=== PATIENT | female | born 1990 | race Caucasian/White ===

== ENCOUNTER 2020-06-15 16:36 | Emergency (ER) | payer SELFPAY ==
[2020-06-15 16:42] VITALS: BP 130/81; PULSE 88; RESP 16; TEMP 36.6; O2SAT 100; BMI 27.4
--- NOTE | 2020-06-15 17:14 | ED_ITS ---
HPI - Abdominal Pain General: Chief Complaint: Abdominal Pain Stated Complaint: abdominal pain, back pain Time Seen by Provider: 06/15/20 17:02 Source: patient Mode of arrival: ambulatory Limitations: no limitations History of Present Illness: HPI narrative: Patient is a 29-year-old 3 para 2 patient and one blighted ovum who presents to the emergency department with left flank/left lower quadrant pain for the last 2 weeks. She states that she is 17 days late on her menstrual period. She has an implanted contraceptive. Pain in her left lower quadrant is getting worse and she says she also noticed some dark tarry vaginal discharge about 3 days ago. Her mother was concerned so asked her to come into the emergency department to be evaluated. MD elicited complaint: abdominal pain and flank pain Onset (ago): week(s) Pain Consistency: constant Location: LLQ Quality: cramping Radiation: LLQ Migration to: no migration Exacerbating factors: nothing Relieving factors: nothing Associated Symptoms: Reports GI cramping; Denies anorexia, belching, bloating, change in bowel habits, change in stool character, chills, coffee ground emesis, constipation, diarrhea, dyspepsia, dysuria, excessive flatus, fever(s), heartburn, hematochezia, hematuria, hematemesis, fecal incontinence, loose stools, melena, nausea, poor appetite, syncope and vomiting Related Data: Date of Last Menstrual Period: 04/22/20 Review of Systems General: Reports: 10 or more systems reviewed and unremarkable except in HPI and below Const: Denies: fever(s) or chills Eyes: Denies: change in vision or blurry vision ENMT: Denies: throat pain, enlarged tonsils, odynophagia, hoarseness, mouth pain or swelling of lips/tongue Card: Denies: syncope Resp: Denies: dyspnea, productive cough or non-productive cough GI: Reports: abdominal pain and GI cramping; Denies: nausea, vomiting, hematemesis, coffee ground emesis, heartburn, diarrhea, constipation, bloating, belching, excessive flatus, fecal incontinence, change in bowel habits, change in stool character, hematochezia or melena : Denies: dysuria or hematuria Musc: Denies: neck pain, back pain or extremity swelling Skin/Breast: Denies: rash, pruritus or erythema Neuro: Denies: headache(s), numbness in extremities or weakness in extremities Endo: Denies: polyuria, polydipsia or tired all the time PFSH ED PFSH: Social History (Reviewed 06/15/20 @ 17:19 by Lizette Mcclelland MD, [facility] [place] Smoking and tobacco status: former smoker Substance/Drug Use: never Female Reproductive History: Date of last menstrual period: 04/22/20 Physical Exam Const: COMMON NORMALS: no acute distress, average body habitus, patient oriented x3, no limitations, healthy appearing, alert and well nourished HENMT: COMMON NORMALS: normocephalic, atraumatic and moist oral mucous membranes HEAD & SCALP: normocephalic and atraumatic Neck/C-Spine: COMMON NORMALS: no meningeal signs and no JVD Resp: COMMON NORMALS: normal respiratory effort, No retractions, No use of accessory muscles, clear to auscultation bilaterally and percussion normal AUSCULTATION: clear to auscultation bilaterally PERCUSSION: percussion normal Cardio: COMMON NORMALS: no JVD, regular rate, regular rhythm, S1 normal heart sound present, S2 normal heart sound present, No gallops present (Cardio), No clicks present (Cardio), No murmurs present (Cardio), No rub (Cardio) and Peripheral pulses 2+ throughout RATE: regular rate RHYTHM: regular rhythm HEART SOUNDS: S1 normal heart sound present and S2 normal heart sound present PERIPHERAL PULSES: Peripheral pulses 2+ throughout GI: COMMON NORMALS: Normal to inspection, nondistended, normoactive bowel sounds present, Soft to palpation, non-tender, No hepatosplenomegaly present, no masses and no bruits PALPATION: Yes Soft to palpation and Yes No hepatosplenomegaly present : BLADDER/KIDNEY EXAM: Yes CVA tenderness SPECULUM EXAM - CERVIX: Yes Cervical os closed, Yes Abnormal cervical discharge present other (Dark brown, mucoid) and Yes Cervical tenderness present BIMANUAL EXAM - VAGINA & UTERUS: Yes Cervical tenderness present and Yes uterine size normal BIMANUAL EXAM - ADNEXA, OTHER: Yes tender on the left Back/Pelvis: GENERAL BACK: Yes CVA tenderness CVA tenderness: left Extremity: COMMON NORMALS: normal to inspection, full ROM, capillary refill normal, no calf tenderness and no pedal edema Neuro: COMMON NORMALS: patient oriented x3 SENSORIUM/ORIENTATION: Yes alert MENINGEAL SIGNS: Yes no meningeal signs Skin: COMMON NORMALS: no rashes or lesions noted, no wounds, turgor normal, no jaundice, no petechiae and no mottling GENERAL SKIN EXAM: no rashes or lesions noted and turgor normal Course Reevaluation(s): Reevaluation #1: Discussed her lab and imaging findings with her as well as my examination findings. Clinically her symptoms are consistent with PID. She also has clue cells on her wet prep so we will treat her for bacterial vaginosis. She be given a dose of intramuscular ceftriaxone 250 mg, and will be given a prescription for doxycycline and metronidazole. Sample sent for gonorrhea and chlamydia and those are pending. She is advised to follow-up with her primary care provider for further evaluation. She voiced understanding and is in agreement with the plan. Time: 20:06 Vital Signs: Vital signs: Vital Signs Temperature 97.9 F 06/15/20 16:42 Pulse Rate 77 06/15/20 20:21 Respiratory Rate 18 06/15/20 18:53 Blood Pressure 115/57 06/15/20 20:21 Pulse Oximetry 96 06/15/20 20:21 MDM - Abdominal Pain MDM Narrative: Medical decision making narrative: Patient with symptoms consistent with pelvic inflammatory disease. Wet prep also showed bacterial vaginosis. She is treated for PID with a single dose of intramuscular ceftriaxone, oral doxycycline 100 mg twice a day for 14 days and oral metronidazole 500 mg twice a day for 7 days. She is to follow-up with her primary care provider and to avoid intercourse until her treatment is complete and if her STD test is positive her partner needs to be treated also Medical Records: Attestation: I reviewed the patient's medical records. Lab Data: Attestation: I reviewed the patient's lab results. Labs: Lab Results 06/15/20 06/15/20 06/15/20 Range/Units 17:08 17:49 17:49 WBC 7.4 (4.0-10.0) 10^3/ uL RBC 4.37 (4.1-5.3) 10^6/u L Hgb 13.1 (11.5-15.3) g/dL Hct 39.6 (37.0-47.0) % MCV 90.6 (81-99) fL MCH 30.0 (28.0-34.0) pg MCHC 33.1 (30.0-36.0) g/dL RDW 11.7 L (12.1-15.1) % Plt Count 279 (130-400) 10^3/c mm MPV 10.4 (7.4-10.4) fL Neut % (Auto) 61.4 % Lymph % (Auto) 30.9 % Stevens % (Auto) 5.1 % Eos % (Auto) 1.6 % Baso % (Auto) 0.7 % Neut # (Auto) 4.56 (1.8-7.7) 10^3/u L Lymph # (Auto) 2.3 (0.8-4.8) 10^3/u L Stevens # (Auto) 0.4 (0.2-0.9) 10^3/u L Eos # (Auto) 0.1 (0.0-0.8) 10^3/u L Baso # (Auto) 0.1 (0.0-0.1) 10^3/u L Nucleated RBC % (a uto) 0 % Nucleated RBCs # 0.0 /100WBC Sodium 138 (136-145) mmol/L Potassium 4.0 (3.5-5.1) mmol/L Chloride 104 (98-107) mmol/L Carbon Dioxide 23 (22-29) mmol/L Anion Gap 15.0 (5-19) BUN 11 (6-20) mg/dL Creatinine 0.7 (0.5-0.9) mg/dL GFR Calculation 100.4 (90-130) mL/min Glucose 84 (65-115) mg/dL Calculated Osmolal ity 285 (285-295) mOsm/k g Calcium 9.3 (8.5-10.5) mg/dL Total Bilirubin 0.4 (0.15-1.2) mg/dL AST 64 H (0-32) U/L ALT 156 H (0-33) U/L Alkaline Phosphata se 57 (35-105) IU/L C-Reactive Protein 0.4 (0.0-4.9) mg/L Total Protein 7.2 (6.6-8.7) g/dL Albumin 4.8 (3.5-5.2) g/dL Globulin 2.4 (1.3-4.6) g/dL Lipase 28 (13-60) U/L Ser , Veronica i-Qnt 0.50 mIU/mL Urine Color Yellow (Yellow) Urine Appearance Clear (CLEAR) Urine pH 7 (5-7) Ur Specific Gravit y 1.010 (1.005-1.030) Urine Protein Neg (Negative) Urine Glucose (UA) Norm (Normal) Urine Ketones Negative (Negative) Urine Blood 2+ H (Negative) Urine Nitrate Negative (Negative) Urine Bilirubin Neg (Negative) Urine Urobilinogen 1 H (Negative) mg/dL Ur Leukocyte Nimisha ase Negative (Negative) Urine RBC 0-4 H (0-2) /hpf Urine WBC None (0-5) /hpf Ur Squamous Epith Cells 0-4 H (0-5) /hpf Amorphous Sediment Not Reportable Urine Bacteria Trace (NONE) /hpf Imaging Data ^: CT Abd/Pel: Attestation: I personally reviewed and interpreted this imaging study as follows: Radiologist's impression: [facility] [address] [address] Scan Report Signed Patient: Kory Meredith #: [id number] : 1990Acct#:[id number] Age/Sex: Date: [birth year] [facility] Attending Dr: Ordering Provider/Ordering MD: Lizette Mcclelland MD, [facility] [place] Date of Service: 06/15/20 Procedure(s): CT kidney stone 02183 Accession Number(s): [id number] Report Number: [id number] PROCEDURE INFORMATION: Exam: CT Abdomen And Pelvis Without Contrast Exam date and time: 06/15/2020 6:50 PM Age: 29 years old Clinical indication: Abdominal pain; Flank; Left; Additional info: Left flank pain TECHNIQUE: Imaging protocol: Computed tomography of the abdomen and pelvis without contrast. Radiation optimization: All CT scans at this facility use at least one of these dose optimization techniques: automated exposure control; mA and/or kV adjustment per patient size (includes targeted exams where dose is matched to clinical indication); or iterative reconstruction. COMPARISON: CT abdomen pelvis w con* [id number] 03/27/2014 3:11 AM RADIATION DOSE METRICS: Total DLP (mGy-cm): 879.48 FINDINGS: Liver: Normal. No mass. Gallbladder and bile ducts: Normal. No calcified stones. No ductal dilation. Pancreas: Normal. No ductal dilation. Spleen: Normal. No splenomegaly. Adrenal glands: Normal. No mass. Kidneys and ureters: Normal. No hydronephrosis. Stomach and bowel: Moderate stool in the proximal and sigmoid colon, as well as the rectum. The descending colon is decompressed with mild circumferential wall thickening. Fecalization of multiple loops of distal small bowel. No evidence for obstruction. The stomach is unremarkable. Appendix: The appendix is normal. Intraperitoneal space: Unremarkable. No free air. No significant fluid collection. Vasculature: Phlebolith in the right renal vein. Lymph nodes: Subcentimeter mesenteric and retroperitoneal lymph nodes are most likely reactive. Urinary bladder: Unremarkable as visualized. Reproductive: Unremarkable as visualized. Bones/joints: Unremarkable. No acute fracture. Soft tissues: Small fat containing umbilical hernia. CT/CT kidney stone [id number] IMPRESSION: 1. No ureteral calculus or obstructive uropathy. 2. Mild circumferential wall thickening of the descending colon may relate to under distension. Mild infectious or inflammatory colitis cannot be excluded however. 3. Stool burden in the proximal and distal colon could indicate constipation in the right clinical setting. 4. Fecalization within the loops of distal small bowel is consistent with chronic delayed transit. Radiation Dose CTDIVOL = (mGy): DLP = 879.48 (mGy-cm) Dictated By:Sal Torres Signed By:Sal TorresSignashleigh Date/Time:06/15/201956 DD/ 56 Discharge Plan Discharge Patient Disposition: Home Clinical Impression: Acute pelvic inflammatory disease (PID), Bacterial vaginosis Condition: Stable Prescriptions: New metronidazole 500 mg tablet 500 mg PO BID 7 Days Qty: 14 RF: 0 doxycycline hyclate 100 mg capsule 100 mg PO BID 14 Days Qty: 28 RF: 0 Discharge Orders: Discharge Order (Routine); Ordered 06/15/20 Ordered By: Lizette Mcclelland Discharge Diet: Usual diet Discharge Activity: Resume usual activity Patient Instructions: Pelvic Inflammatory Disease (ED), Bacterial Vaginosis (ED) Activity Restrictions/Additional Instructions: Return for any new or worsening symptoms. Follow-up with your primary care provider within 3 days. Take the medications as prescribed. You will be contacted with the remaining results from the test that we have sent out. Coding Level of Care Code ED Adjustment Supervisor for Eris Fwd Exam Comprehensive
[2020-06-15 18:12] LABS: Basophils # 0.1 10^3/uL (0.0-0.1); Basophils % 0.7 %; Eosinophils # 0.1 10^3/uL (0.0-0.8); Eosinophils % 1.6 %; Hematocrit 39.6 % (37.0-47.0); Hemoglobin 13.1 g/dL (11.5-15.3); Lymphocytes # 2.3 10^3/uL (0.8-4.8); Lymphocytes % 30.9 %; Mean Corpuscular HGB Conc 33.1 g/dL (30.0-36.0); Mean Corpuscular Volume 90.6 fL (81-99); Mean Platelet Volume 10.4 fL (7.4-10.4); Monocytes # 0.4 10^3/uL (0.2-0.9); Monocytes % 5.1 %; Neutrophils # 4.56 10^3/uL (1.8-7.7); Neutrophils % 61.4 %; Nucleated Red Blood Cells % 0 %; Platelet Count 279 10^3/cmm (130-400); Red Blood Count 4.37 10^6/uL (4.1-5.3); Red Cell Distribution Width 11.7 % (12.1-15.1); White Blood Count 7.4 10^3/uL (4.0-10.0)
[2020-06-15 18:27] LABS: Add Urine Microscopic? YES; Bilirubin Urine Neg (Negative); Blood Urine 2+ (Negative); Glucose Urine UA Norm (Normal); Ketones Urine Negative (Negative); Leukocyte Esterase Urine Negative (Negative); Nitrate Urine Negative (Negative); Protein Urine Neg (Negative); Urine Appearance Clear (CLEAR); Urine Color Yellow (Yellow); Urobilinogen Urine 1 mg/dL (Negative); pH Urine 7 (5-7)
[2020-06-15 18:40] LABS: Alanine Aminotransferase 156 U/L (0-33); Albumin Level 4.8 g/dL (3.5-5.2); Alkaline Phosphatase 57 IU/L (35-105); Blood Urea Nitrogen 11 mg/dL (6-20); C Reactive Protein 0.4 mg/L (0.0-4.9); Calcium 9.3 mg/dL (8.5-10.5); Carbon Dioxide 23 mmol/L (22-29); Chloride 104 mmol/L (98-107); Globulin 2.4 g/dL (1.3-4.6); Glomerular Filtration Rate 100.4 mL/min (90-130); Glucose 84 mg/dL (65-115); Lipase 28 U/L (13-60); Osmolality Calculated 285 mOsm/kg (285-295); Sodium 138 mmol/L (136-145); Total Bilirubin 0.4 mg/dL (0.15-1.2); Total Protein 7.2 g/dL (6.6-8.7)
[2020-06-15 18:41] LABS: RBC Urine 0-4 /hpf (0-2)
[2020-06-15 18:42] LABS: Add Urine Culture? No; Bacteria Urine TRACE /hpf; Squamous Epithelial Cell Urine 0-4 /hpf (0-5)
--- NOTE | 2020-06-15 18:44 | CTR_ITS ---
PROCEDURE INFORMATION: Exam: CT Abdomen And Pelvis Without Contrast Exam date and time: 06/15/2020 6:50 PM Age: 29 years old Clinical indication: Abdominal pain; Flank; Left; Additional info: Left flank pain TECHNIQUE: Imaging protocol: Computed tomography of the abdomen and pelvis without contrast. Radiation optimization: All CT scans at this facility use at least one of these dose optimization techniques: automated exposure control; mA and/or kV adjustment per patient size (includes targeted exams where dose is matched to clinical indication); or iterative reconstruction. COMPARISON: CT abdomen pelvis w con* [id number] 03/27/2014 3:11 AM RADIATION DOSE METRICS: Total DLP (mGy-cm): 879.48 FINDINGS: Liver: Normal. No mass. Gallbladder and bile ducts: Normal. No calcified stones. No ductal dilation. Pancreas: Normal. No ductal dilation. Spleen: Normal. No splenomegaly. Adrenal glands: Normal. No mass. Kidneys and ureters: Normal. No hydronephrosis. Stomach and bowel: Moderate stool in the proximal and sigmoid colon, as well as the rectum. The descending colon is decompressed with mild circumferential wall thickening. Fecalization of multiple loops of distal small bowel. No evidence for obstruction. The stomach is unremarkable. Appendix: The appendix is normal. Intraperitoneal space: Unremarkable. No free air. No significant fluid collection. Vasculature: Phlebolith in the right renal vein. Lymph nodes: Subcentimeter mesenteric and retroperitoneal lymph nodes are most likely reactive. Urinary bladder: Unremarkable as visualized. Reproductive: Unremarkable as visualized. Bones/joints: Unremarkable. No acute fracture. Soft tissues: Small fat containing umbilical hernia. CT/CT kidney stone [id number] IMPRESSION: 1. No ureteral calculus or obstructive uropathy. 2. Mild circumferential wall thickening of the descending colon may relate to under distension. Mild infectious or inflammatory colitis cannot be excluded however. 3. Stool burden in the proximal and distal colon could indicate constipation in the right clinical setting. 4. Fecalization within the loops of distal small bowel is consistent with chronic delayed transit. Radiation Dose CTDIVOL = (mGy): DLP = 879.48 (mGy-cm)
[2020-06-15 18:53] VITALS: BP 97/56; PULSE 57; RESP 18; O2SAT 96
[2020-06-15 18:59] LABS: Aspartate Amino Transferase 64 U/L (0-32)
[2020-06-15] MEDS: cefTRIAXone 1,000 mg SDV 250 MG IM (19:00)
[2020-06-15] MEDS: ketorolac 30 mg/mL INJ IVP (19:08)
[2020-06-15 19:38] VITALS: BP 115/57; PULSE 60; O2SAT 97
[2020-06-15 20:21] VITALS: BP 115/57; PULSE 77; O2SAT 96
== END 2020-06-15 20:23 | disposition home or self-care (01) ==
PROVIDERS: Emergency Provider Family Medicine
DX: N73.9 Female pelvic inflammatory disease, unspecified (principal); N76.0 Acute vaginitis; Z87.891 Personal history of nicotine dependence
CPT/HCPCS: 12345; 74176; 80053; 81001; 83690; 84702; 85025; 86140; 87210; 96372; 96374; 99283; E0352; J0696; J1885

== ENCOUNTER 2020-07-03 09:01 | Emergency (ER) | payer SELFPAY ==
[2020-07-03 09:21] VITALS: BP 114/82; PULSE 64; RESP 18; TEMP 36.5; O2SAT 99; BMI 27.4
[2020-07-03 09:28] VITALS: BP 127/75; PULSE 70; RESP 18; O2SAT 100
--- NOTE | 2020-07-03 09:44 | ED_ITS ---
HPI - Neck Pain/Injury General: Chief Complaint: Neck Pain/Injury Stated Complaint: neck pain Time Seen by Provider: 07/03/20 09:22 History of Present Illness: HPI Narrative: 29-year-old female comes in complaint of pain in her neck that began this morning. She is moving some things in her car, tossing them turned a few times suddenly began to develop some pain on the right side of her neck with quite comfortable that over time progressively worsened to the point now where she has slight flexion of the neck and is turned to her right she is unable to move from this position without significant discomfort. She is not had this previously. She has no history of cervical spine injury no recent trauma motor vehicle accident falls etc. She is not taking anything for this. 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 MD complaint: neck pain Onset (ago): minute(s) Place: home Radiation: right lateral Severity: severe Quality: burning Duration: constant Relieving factors: none Exacerbating factors: movement of neck Context: lifting and turning/bending Associated symptoms: Reports nausea; Denies dysphagia, difficulty walking, dizziness, fevers/chills, headache(s), swollen glands, tingling or weakness Treatments prior to arrival: none Review of Systems Const: Denies: fever(s), chills, body aches, change in appetite, fatigue or malaise ENMT: Denies: throat pain, ear or mastoid pain, nasal discharge or nasal congestion Card: Denies: chest pain, edema, dyspnea on exertion or orthopnea Resp: Denies: dyspnea, productive cough or non-productive cough GI: Reports: nausea; Denies: dysphagia : Denies: flank pain, difficulty voiding, dysuria, urinary frequency or urinary urgency Skin/Breast: Denies: rash or pruritus Neuro: Denies: headache(s), difficulty walking or dizziness PFSH ED PFSH: Family History Father Diabetes Clotting disorder Hypertension Grandmother Diabetes paternal Family/Other Thyroid condition maternal aunt Sister Thyroid condition Ovarian cancer diagnosis age unknown Denies family history of Colon cancer Heart disease Hyperlipidemia Breast cancer Anesthesia complication Bleeding disorder Uterine cancer Stroke Social History (Reviewed 07/03/20 @ 09:48 by KRISTIAN Finney Smoking and tobacco status: current every day smoker cigarettes [ Other cigarette details: 2 cigarettes/day ] Alcohol intake: former Year of sobriety/quit date alcohol: 2015 Other details last substance use: hitsory of methamphetamines and opiate abuse Female Reproductive History: Date of last menstrual period: 04/22/20 Physical Exam Const: COMMON NORMALS: no acute distress GENERAL APPEARANCE: cooperative and comfortable ORIENTATION/CONSCIOUSNESS: Yes awake, Yes oriented to person, Yes oriented to place and Yes oriented to time HENMT: COMMON NORMALS: normocephalic, atraumatic and hearing grossly normal bilaterally HEAD & SCALP: normocephalic and atraumatic Eye: COMMON NORMALS: Equal, round and reactive pupils present, EOMs intact bilaterally, conjunctivae normal and no scleral icterus CONJUNCTIVA: Yes conjunctivae normal PUPIL: Yes Equal, round and reactive pupils present Neck/C-Spine: COMMON NORMALS: no JVD GENERAL: Yes tender and Yes torticollis CERVICAL SPINE: Yes pain with cervical ROM and Yes loss of normal cervical lordosis OTHER: Patient holding head and neck turned to the right and slightly flexed consistent with a spasmodic torticollis patient has significant pain with attempts to move head to neutral position is unable to do so actively on her own. Resp: COMMON NORMALS: normal respiratory effort, No retractions, No use of accessory muscles and clear to auscultation bilaterally AUSCULTATION: clear to auscultation bilaterally Cardio: COMMON NORMALS: no JVD, regular rate, regular rhythm and No murmurs present (Cardio) RATE: regular rate RHYTHM: regular rhythm GI: COMMON NORMALS: Soft to palpation and No hepatosplenomegaly present AUSCULTATION: Yes normoactive bowel sounds PALPATION: Yes Soft to palpation, No Tenderness to palpation present (GI), No Guarding due to palpation present (GI) and Yes No hepatosplenomegaly present Extremity: COMMON NORMALS: normal to inspection, capillary refill normal, no clubbing, cyanosis or edema, no calf tenderness and no pedal edema Neuro: SENSORIUM/ORIENTATION: Yes oriented to person, Yes oriented to place and Yes oriented to time Skin: COMMON NORMALS: no rashes or lesions noted GENERAL SKIN EXAM: no rashes or lesions noted Course Vital Signs: Vital signs: Vital Signs Temperature 97.7 F 07/03/20 09:21 Pulse Rate 70 07/03/20 11:26 Respiratory Rate 18 07/03/20 11:26 Blood Pressure 127/75 07/03/20 11:26 Pulse Oximetry 100 07/03/20 11:26 MDM - Neck Pain/Injury MDM Narrative: Medical decision making narrative: Proved after medications will discharge home with diclofenac Medrol Dosepak Dosepak and Zanaflex. Offered narcotic pain medications patient is a recovering addict and she does not want any of those. Given note for work as well encouraged rest gentle stretching heat as needed follow-up with her primary care doctor if not improving the next 2 days for referral to physical therapy Discharge Plan Discharge Patient Disposition: Home Clinical Impression: Spasmodic torticollis Condition: Stable Prescriptions: New diclofenac sodium 75 mg tablet,delayed release (DR/EC) 75 mg PO Q12H PRN (Reason: pain) Qty: 20 RF: 0 Medrol (Deni) 4 mg tablets,dose pack See Rx Instructions .ROUTE .COMPLEX Qty: 21 RF: 0 Zanaflex 4 mg capsule 4 mg PO Q6H PRN (Reason: muscle spasticity) Qty: 20 RF: 0 No Action lidocaine-epinephrine (PF) 2 %-1:200,000 solution 3 ml SUBCUT ONCE Qty: 20 RF: 0 Nexplanon 68 mg implant subdermal RF: 0 Discharge Orders: Discharge ED (Routine); Ordered 07/03/20 Ordered By: Billy De Oliveira Stand Alone Forms: Work/School Release Coding Level of Care Code ED 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
[2020-07-03] MEDS: LORazepam 2 mg/mL INJ 1 mL IM (10:01)
[2020-07-03] MEDS: ketorolac 30 mg/mL INJ IM (10:01)
[2020-07-03] MEDS: orphenadrine 30 mg/mL Inj 2 mL 60 MG IM (10:02)
[2020-07-03 11:26] VITALS: BP 127/75; PULSE 70; RESP 18; O2SAT 100
--- NOTE | 2020-07-07 12:31 | DCPLANNER ---
auto repair shop manager had message to refer patient for physical therapy. auto repair shop manager called the Rehab center, spoke with Shaq, was told that an order had to placed, rehabilitation case coordinator will have it signed and fax it the rehab center.
--- NOTE | 2020-07-15 11:28 | DCPLANNER ---
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
== END 2020-07-03 11:26 | disposition home or self-care (01) ==
PROVIDERS: Emergency Provider Family Medicine
DX: G24.3 Spasmodic torticollis (principal); F17.210 Nicotine dependence, cigarettes, uncomplicated
CPT/HCPCS: 12345; 96372; 99281; 99283; J1885; J2060; J2360

== ENCOUNTER → 2020-09-21 17:59 | Outpatient (BNVA) | payer OTHER, SELFPAY | PROVIDERS: Visit Provider Nurse Practitioner Family | DX: J02.9 Acute pharyngitis, unspecified (principal) | CPT/HCPCS: 87071; 87880 ==

== ENCOUNTER → 2020-10-08 14:09 | Outpatient (BNVA) | payer OTHER, SELFPAY | PROVIDERS: Visit Provider Obstetrics & Gynecology | DX: N91.2 Amenorrhea, unspecified (principal) | CPT/HCPCS: 81025 ==

== ENCOUNTER → 2020-11-02 09:53 | Outpatient (BNVA) | payer OTHER, SELFPAY | PROVIDERS: Visit Provider Obstetrics & Gynecology | DX: O09.899 Supervision of other high risk pregnancies, unspecified trimester (principal); B18.2 Chronic viral hepatitis C | CPT/HCPCS: 80076; 80307; 84315; 85027; 86592; 86762; 86803; 86850; 86900; 87086; 87340; 87522; 87806 ==

== ENCOUNTER → 2020-12-03 08:23 | Outpatient (BNVA) | payer OTHER, SELFPAY | PROVIDERS: Visit Provider Obstetrics & Gynecology | DX: O09.899 Supervision of other high risk pregnancies, unspecified trimester (principal); N63.20 Unspecified lump in the left breast, unspecified quadrant; B18.2 Chronic viral hepatitis C; O21.9 Vomiting of pregnancy, unspecified; O98.419 Viral hepatitis complicating pregnancy, unspecified trimester; O99.331 Smoking (tobacco) complicating pregnancy, first trimester; Z12.4 Encounter for screening for malignant neoplasm of cervix | CPT/HCPCS: 84315; 87491; 87591; 88175 ==

== ENCOUNTER 2020-12-24 09:52 | Outpatient (CLI) | payer OTHER, SELFPAY ==
--- NOTE | 2020-12-24 10:00 | US_ITS ---
WS: [id number] ULTRASOUND BREAST LEFT TECHNIQUE: Ultrasound left breast focused area of concern. CLINICAL INFORMATION: N63.20 - Unspecified lump in the left breast, unspecified... COMPARISON: None. FINDINGS: Ultrasound left breast upper-outer quadrant in the area of concern. Incidental lymph node at the 2:00 position measuring 9 x 5 mm. Incidental ductal ectasia seen at the 4:00 position. No evidence of int raductal mass or lesion. Otherwise normal parenchymal tissue. No suspicious lesions. Findings are jose m ign. US/US breast LT limited* [id number] IMPRESSION: BI-RADS 2 benign Recommend annual screening mammography age 42
== END 2020-12-24 09:53 | disposition home or self-care (01) ==
LOC: RAD 09:53
PROVIDERS: Visit Provider Obstetrics & Gynecology
DX: N63.21 Unspecified lump in the left breast, upper outer quadrant (principal); N60.42 Mammary duct ectasia of left breast
CPT/HCPCS: 76642

== ENCOUNTER → 2021-01-07 15:02 | Outpatient (BNVA) | payer OTHER, SELFPAY | PROVIDERS: Visit Provider Obstetrics & Gynecology | DX: O32.1XX0 Maternal care for breech presentation, not applicable or unspecified (principal); Z3A.21 21 weeks gestation of pregnancy | CPT/HCPCS: 76805 ==

== ENCOUNTER → 2021-01-24 08:34 | Outpatient (BNVA) | payer OTHER, SELFPAY | PROVIDERS: Visit Provider Obstetrics & Gynecology | DX: B18.2 Chronic viral hepatitis C (principal); Z83.2 Family history of diseases of the blood and blood-forming organs and certain disorders involving the immune mechanism; O98.419 Viral hepatitis complicating pregnancy, unspecified trimester | CPT/HCPCS: 80053; 81241; 85210; 85300; 85303; 85306 ==

== ENCOUNTER → 2021-02-04 10:00 | Outpatient (BNVA) | payer OTHER, SELFPAY | PROVIDERS: Visit Provider Nurse Practitioner Women's Health | DX: O09.899 Supervision of other high risk pregnancies, unspecified trimester (principal); Z3A.00 Weeks of gestation of pregnancy not specified | CPT/HCPCS: 82950; 84315 ==

== ENCOUNTER 2021-02-24 11:10 | Outpatient (CLI) | payer OTHER, SELFPAY ==
[2021-02-24 11:20] VITALS: RESP 16
[2021-02-24 11:23] VITALS: BP 109/70; PULSE 97; TEMP 36.2
[2021-02-24 11:31] VITALS: BMI 28.8
[2021-02-24 11:40] VITALS: BP 107/67; PULSE 90
[2021-02-24 11:54] VITALS: BP 94/52; PULSE 90
[2021-02-24] MEDS: hyDROXYzine 25 mg Capsule 50 MG PO (11:59)
[2021-02-24 12:10] VITALS: BP 92/52; PULSE 81
[2021-02-24 12:14] LABS: Bilirubin Urine Neg (Negative); Blood Urine Neg (Negative); Glucose Urine UA Norm (Normal); Ketones Urine Negative (Negative); Leukocyte Esterase Urine Negative (Negative); Nitrate Urine Negative (Negative); Protein Urine Neg (Negative); Sulfosalicylic Acid Urine Negative (Negative); Urine Appearance Clear (CLEAR); Urine Color Yellow (Yellow); Urobilinogen Urine Norm (Negative); WBC Urine RARE /hpf (0-5); pH Urine 8 (5-7)
[2021-02-24 12:15] LABS: Bacteria Urine 1+ /hpf; Squamous Epithelial Cell Urine 0-4 /hpf (0-5)
[2021-02-24 12:24] VITALS: BP 85/54; PULSE 93
[2021-02-24] MEDS: nitrofurantoin SR (BID) 100 mg Capsule PO (12:42)
--- NOTE | 2021-02-24 12:47 | PC.NURSE ---
Macrobid 100mg PO BID x7 days called to [facility] pharmacy in [place] per patient's request.
== END 2021-02-24 12:35 | disposition home or self-care (01) ==
LOC: OPOB 11:12 → OBGYN 11:13
PROVIDERS: Visit Provider Obstetrics & Gynecology
DX: O26.899 Other specified pregnancy related conditions, unspecified trimester (principal); Z3A.00 Weeks of gestation of pregnancy not specified; R10.2 Pelvic and perineal pain
CPT/HCPCS: 81001; 87086; 99211

== ENCOUNTER → 2021-03-04 08:53 | Outpatient (BNVA) | payer OTHER, SELFPAY | PROVIDERS: Visit Provider Obstetrics & Gynecology | DX: O09.899 Supervision of other high risk pregnancies, unspecified trimester (principal) | CPT/HCPCS: 81000; 85025 ==

== ENCOUNTER → 2021-03-18 08:32 | Outpatient (BNVA) | payer OTHER, SELFPAY | PROVIDERS: Visit Provider Obstetrics & Gynecology | DX: O99.331 Smoking (tobacco) complicating pregnancy, first trimester (principal); B94.8 Sequelae of other specified infectious and parasitic diseases; B18.2 Chronic viral hepatitis C | CPT/HCPCS: 81000 ==

== ENCOUNTER → 2021-04-01 08:54 | Outpatient (BNVA) | payer OTHER, SELFPAY | PROVIDERS: Visit Provider Obstetrics & Gynecology | DX: O09.899 Supervision of other high risk pregnancies, unspecified trimester (principal); K59.00 Constipation, unspecified | CPT/HCPCS: 81000 ==

== ENCOUNTER → 2021-04-15 08:05 | Outpatient (BNVA) | payer OTHER, SELFPAY | PROVIDERS: Visit Provider Nurse Practitioner Women's Health | DX: G25.81 Restless legs syndrome; B18.2 Chronic viral hepatitis C; O98.419 Viral hepatitis complicating pregnancy, unspecified trimester; O99.331 Smoking (tobacco) complicating pregnancy, first trimester; B94.8 Sequelae of other specified infectious and parasitic diseases | CPT/HCPCS: 80076; 81000; 87522 ==

== ENCOUNTER 2021-04-20 10:50 | Outpatient (CLI) | payer OTHER, SELFPAY ==
[2021-04-20] VITALS (16 sets, daily range): BP systolic 104–108; BP diastolic 62–67; PULSE 93–131; RESP 16; TEMP 37–37.7; O2SAT 94–97; BMI 31.8
--- NOTE | 2021-04-20 11:28 | US_ITS ---
WS: [id number] ULTRASOUND OB LIMITED TECHNIQUE: Limited ultrasound examination of the fetus. CLINICAL INFORMATION: Fall and pain onto right side COMPARISON: January 07, 2021 FINDINGS: Cervix measures 3.1 cm Single interuterine gestation. presentation is cephalic Placental location is anterior. Placenta grade: 1 No evidence of placenta abruption. heart rate 133 BPM. OBI 10.1 cm EGA : 34 weeks 5 days US/US OB limited [id number] IMPRESSION: 1. Single live intrauterine with vertex presentation. 2. Cervix measures 3.1 cm. 3. Anterior placenta. No evidence of abruption 4. cardiac activity 133 bpm. 5. OBI 10.1 cm greater than the fifth and less than the median
[2021-04-20 12:07] LABS: Basophils % 0.4 %; Eosinophils # 0.1 10^3/uL (0.0-0.8); Eosinophils % 0.8 %; Hematocrit 32.1 % (37.0-47.0); Hemoglobin 10.7 g/dL (11.5-15.3); Lymphocytes # 1.8 10^3/uL (0.8-4.8); Lymphocytes % 15.9 %; Mean Corpuscular HGB Conc 33.3 g/dL (30.0-36.0); Mean Corpuscular Volume 89.9 fl (81-99); Mean Platelet Volume 10.3 fL (7.4-10.4); Monocytes # 0.6 10^3/uL (0.2-0.9); Monocytes % 5.8 %; Neutrophils # 8.38 10^3/uL (1.8-7.7); Neutrophils % 76.1 %; Nucleated Red Blood Cells % 0 %; Platelet Count 268 10^3/cmm (130-400); Red Blood Count 3.57 10^6/uL (4.1-5.3); Red Cell Distribution Width 12.1 % (12.1-15.1)
[2021-04-20 12:32] LABS: Alanine Aminotransferase 26 U/L (0-33); Albumin Level 3.2 g/dL (3.5-5.2); Alkaline Phosphatase 89 IU/L (35-105); Anion Gap 13.6 (5-19); Aspartate Amino Transferase 22 U/L (0-32); Blood Urea Nitrogen 8 mg/dL (6-20); Calcium 8.4 mg/dL (8.5-10.5); Carbon Dioxide 21 mmol/L (22-29); Chloride 104 mmol/L (98-107); Globulin 2.5 g/dL (1.3-4.6); Glomerular Filtration Rate 146.9 mL/min (90-130); Glucose 116 mg/dL (65-115); Osmolality Calculated 279 mOsm/kg (285-295); Potassium 3.6 mmol/L (3.5-5.1); Sodium 135 mmol/L (136-145); Total Bilirubin 0.2 mg/dL (0.15-1.2); Total Protein 5.7 g/dL (6.6-8.7)
== END 2021-04-20 14:17 | disposition home or self-care (01) ==
LOC: OPOB 10:59 → OBGYN 11:01
PROVIDERS: Visit Provider Obstetrics & Gynecology
DX: O26.899 Other specified pregnancy related conditions, unspecified trimester (principal); Z3A.00 Weeks of gestation of pregnancy not specified; Z91.81 History of falling
CPT/HCPCS: 36415; 59025; 76815; 80053; 85025; 99211

== ENCOUNTER → 2021-04-29 09:04 | Outpatient (BNVA) | payer OTHER, SELFPAY | PROVIDERS: PCP Obstetrics & Gynecology; Visit Provider Obstetrics & Gynecology | DX: O09.899 Supervision of other high risk pregnancies, unspecified trimester (principal); O99.331 Smoking (tobacco) complicating pregnancy, first trimester; B94.8 Sequelae of other specified infectious and parasitic diseases; O98.419 Viral hepatitis complicating pregnancy, unspecified trimester; B18.2 Chronic viral hepatitis C; G25.81 Restless legs syndrome | CPT/HCPCS: 81000; 87081 ==

== ENCOUNTER 2021-05-02 12:00 | Outpatient (CLI) | payer OTHER, SELFPAY ==
[2021-05-02] VITALS (7 sets, daily range): BP systolic 104–121; BP diastolic 61–78; PULSE 90–129; RESP 18; TEMP 35.9–36
[2021-05-02] MEDS: dextrose 5%-lactated ringers 1,000 ML 125 ML IV (13:15)
[2021-05-02] MEDS: sodium chloride 0.9% 500 ML 999 ML IV (13:15)
== END 2021-05-02 14:40 | disposition home or self-care (01) ==
LOC: OPOB 12:05 → OBGYN 12:11
PROVIDERS: PCP Obstetrics & Gynecology; Visit Provider Obstetrics & Gynecology
DX: O26.899 Other specified pregnancy related conditions, unspecified trimester (principal); Z3A.00 Weeks of gestation of pregnancy not specified; R10.9 Unspecified abdominal pain
CPT/HCPCS: 59025; 99211; J7040

== ENCOUNTER → 2021-05-06 13:00 | Outpatient (BNVA) | payer OTHER, SELFPAY | PROVIDERS: PCP Obstetrics & Gynecology; Visit Provider Obstetrics & Gynecology | DX: O09.899 Supervision of other high risk pregnancies, unspecified trimester (principal); Z3A.00 Weeks of gestation of pregnancy not specified | CPT/HCPCS: 81000 ==

== ENCOUNTER → 2021-05-13 10:11 | Outpatient (BNVA) | payer OTHER, SELFPAY | PROVIDERS: PCP Obstetrics & Gynecology; Visit Provider Obstetrics & Gynecology | DX: O99.331 Smoking (tobacco) complicating pregnancy, first trimester (principal); B94.8 Sequelae of other specified infectious and parasitic diseases; O98.419 Viral hepatitis complicating pregnancy, unspecified trimester; B18.2 Chronic viral hepatitis C; G25.81 Restless legs syndrome; Z20.822 Contact with and (suspected) exposure to COVID-19 | CPT/HCPCS: 84315; 87635 ==

== ENCOUNTER → 2021-05-20 10:36 | Outpatient (BNVA) | payer OTHER, SELFPAY | PROVIDERS: PCP Obstetrics & Gynecology; Visit Provider Obstetrics & Gynecology | DX: O98.419 Viral hepatitis complicating pregnancy, unspecified trimester (principal); B18.2 Chronic viral hepatitis C; O99.331 Smoking (tobacco) complicating pregnancy, first trimester; G25.81 Restless legs syndrome | CPT/HCPCS: 81000; 87635 ==

== ENCOUNTER 2021-05-22 17:00 | Inpatient (IN) | payer OTHER, SELFPAY ==
[2021-05-22] VITALS (26 sets, daily range): BP systolic 105–140; BP diastolic 55–88; PULSE 82–112; RESP 18; O2SAT 98–100; BMI 32.4
[2021-05-22] MEDS: dextrose 5%-lactated ringers 1,000 ML 125 ML IV (18:24)
[2021-05-22] MEDS: oxytocin 30 UNIT/500 ML BAG IV (18:24)
[2021-05-22 19:14] LABS: Basophils % 0.5 %; Eosinophils # 0.1 10^3/uL (0.0-0.8); Eosinophils % 0.9 %; Hematocrit 31.9 % (37.0-47.0); Hemoglobin 10.8 g/dL (11.5-15.3); Lymphocytes # 1.5 10^3/uL (0.8-4.8); Lymphocytes % 18.8 %; Mean Corpuscular HGB Conc 33.9 g/dL (30.0-36.0); Mean Corpuscular Hemoglobin 28.8 pg (28.0-34.0); Mean Corpuscular Volume 85.1 fl (81-99); Mean Platelet Volume 11.5 fL (7.4-10.4); Monocytes # 0.6 10^3/uL (0.2-0.9); Monocytes % 7.2 %; Neutrophils % 72.1 %; Nucleated Red Blood Cells % 0 %; Platelet Count 240 10^3/cmm (130-400); Red Blood Count 3.75 10^6/uL (4.1-5.3); Red Cell Distribution Width 12.2 % (12.1-15.1)
--- NOTE | 2021-05-22 21:58 | PM.OPHPUD ---
Labor & Delivery H&P Update Date of Procedure: May 23, 2021 Date H&P Performed: 05/20/21 H&P update information: I have reviewed H&P completed within last 30 days, I have examined patient prior to procedure and No changes to prior documentation Changes to previous documentation: The patient presents for induction at term. Admission Diagnosis: iup @ 39 10/03
[2021-05-23] VITALS (83 sets, daily range): BP systolic 90–137; BP diastolic 48–90; PULSE 66–102; RESP 16–18; TEMP 36.4–37; O2SAT 91–100
[2021-05-23] MEDS: lactated ringers 1,000 ML 999 ML IV (00:35)
--- NOTE | 2021-05-23 02:22 | P.ANES_ITS ---
Anesthesia Procedures Procedure/Date: 05/23/21 Epidural: Time Out Performed: Yes Consents Signed: Procedure Consent Consent: from patient, risks and benefits reviewed and patient agrees to proceed Lumbar Level: L3-L4 Epidural position: sitting Epidural procedure: sterile prep of area, 1% lidocaine to numb the area, 18 g needle, neg for parest hesia, test dose given, 1.5% xylocaine 1:200k epi (5cc), 0.2% Ropivacaine bolus ml (5cc and Fentanyl 100mcg), no systemic response, sterile dressing applied, L.U.D. no apparent complications and 0.2% Ropiavacaine @ mls/hr (13cc/hour)
[2021-05-23] MEDS: dextrose 5%-lactated ringers 1,000 ML 125 ML IV ×2 (03:07→10:52)
--- NOTE | 2021-05-23 13:41 | P.PCNOB_ITS ---
Delivery Note: Date of delivery: May 23, 2021 Pre-delivery diagnoses: Term Post-delivery diagnoses: Term delivered Procedure: A spontaneous vaginal delivery Op report anesthesia: Epidural Delivering Physician: Hoang Reyna MD Estimated blood loss (mL): 300 Delivery: The patient was noted to be complete and pushing, so was placed in the dorsal lithotomy position, prepped and draped in the usual sterile fashion for a vaginal delivery. Pt. Noted to have epidural anesthesia. At 1328 the patient delivered a viable 39 weeks female weighing 4240 g with scores of 8 and 9 at one and five minutes, respectively. The vertex was delivered spontaneously over an intact perineum. The patient was asked to push and the head delivered spontaneously in the OPAL position, over an intact perineum. A nuchal cord was checked and none noted. The anterior shoulder delivered easily and the posterior shoulder followed. The remainder of the was easily delivered and the oropharynx and nasopharynx was bulb suctioned. The was noted to have spontaneous cry and spontaneous movement of all four extremities. The cord was clamped x 2 and cut and noted to have 2 arteries and one vein. The was passed to the mother's abdomen where nursing personnel were in attendance. The placenta delivered intact spontaneously and the uterus was explored. 20 units of Pitocin was placed in the IV bag to firm the uterus. Examination of the cervix and vaginal vault did not reveal any lacerations. A vaginal pack was then placed. Examination of the perineum showed no laceration. The vaginal pack was then removed. The patient tolerated this procedure well, and recovered in L&D with her in their LDR room. All sponge and needle counts were correct. Post-Delivery Status: Good and stable. The patient requested to proceed with plan tubal ligation. OR was called and she has been scheduled for tubal ligation at 7 AM tomorrow morning. 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
--- NOTE | 2021-05-23 13:51 | P.PN_ITS ---
Subjective Subjective: Interval history: Mrs. Brown Status post spontaneous vaginal delivery, desires permanent sterilization. Vitals/I&O/Wt Last Vital Signs Temp 98.6 F 05/23/21 11:58 Pulse 101 H 05/23/21 13:00 Resp 17 05/23/21 11:58 BP 123/70 05/23/21 13:00 Pulse Ox 98 05/23/21 02:24 05/22/21 05/23/21 05/23/21 22:59 06:59 14:59 Intake Total 2.884 / 2.884 1772.917 / 0214.843 2741.75 / 1068.75 Output Total 100 / 100 Balance 2.884 / 2.884 1672.917 / 2193.777 5491.75 / 1068.75 Weight last 48 hrs Weight 83 kg Physical Exam Narrative: EXAM NARRATIVE: GA; alert and oriented x 3 HEENT: normal Breasts: engorged Nipples - skin intact Lungs; clear to auscultation Heart: regular rhythm, no murmurs. Abd: Appropriately tender. BS+. Uterine fundus below umbilicus. No Fundal Tenderness. Perineum: normal lochia. Extremities: no edema, no cyanosis, no tenderness. Urinary Catheter Management^: Pablo: Cath Placed During This Visit: yes Reason for Continuing Indwelling Catheter: Required Immobilization for Trauma or Surgery or Anesthesia Urinary Catheter Date of Insertion: 05/23/21 Urinary Catheter Time of Insertion: 03:00 Data : 05/22/21 18:40 A&P Assessment and plan (1) Request for sterilization: 30-year-old female status post spontaneous vaginal delivery desire permanent sterilization requesting tubal ligation. The patient was counseled regarding all methods of contraception, risk and complications. She elected to continue to proceed with the tubal ligation as planned. partial salpingectomy is associated with lower failure rates than interval tubal occlusions done via laparoscopy. She was counseled regarding the procedure, alternative, risks and complications. Complications of tubal sterilization include problems like but not limited to anesthesia, hemorrhage, organ damage, and mortality. Although pregnancies after a sterilization procedure are rare, there is substantial risk that any post- sterilization could be ectopic. The overall failure rate is on the order of 0.5% in the first year but a study showed that sterilization failures vary by both age at sterilization and the method used. The study also found that the risks of accumulate over time, and that for women aged 18 to 27 years, failure rates can be as high as 5% with bipolar coagulation and the spring clip. The patient was informed of the risks and benefits of the procedure. Risks included but were not limited to bleeding, infection, and injury to internal organs. The patient was counseled on the risk of sterilization failure. The patient was informed that in the event a occurs the risk of ectopic is increased. The patient was counseled that bilateral tubal ligation is intended to be permanent and nonreversible. She was also counseled that there are nonpermanent forms of control available to her. The patient expressed understanding of the risks involved, all questions were answered, and the patient consented to the procedure. 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
[2021-05-23] MEDS: lanolin oint 7 gm 1 APPLIC TOPICAL (15:40)
[2021-05-23] MEDS: ibuprofen 800 mg tablet PO ×2 (15:40→20:15)
[2021-05-23] MEDS: benzocaine-menthol 78 gm Canister 1 SPRAY TOPICAL (15:40)
--- NOTE | 2021-05-23 16:42 | PC.NURSE ---
pt up to bathroom with assistance. void 600mL. sheyla care performed. pad and gown changed. Pt back to bed.
[2021-05-23] MEDS: nicotine 14 mg Patch 1 PATCH TRANSDERMA (17:02)
--- NOTE | 2021-05-23 17:53 | PC.RESP ---
Smoking Cessation information sent to patient.
[2021-05-23] MEDS: docusate sodium 100 mg Capsule PO (18:07)
--- NOTE | 2021-05-23 18:29 | PC.NURSE ---
pt moved to OB9 via ambulation. tolerated well. oriented to room, call light, proud parent pack, and feeding log.
[2021-05-24] VITALS (18 sets, daily range): BP systolic 82–123; BP diastolic 50–82; PULSE 60–79; RESP 15–26; TEMP 36.1–36.9; O2SAT 93–100
[2021-05-24 02:32] LABS: Hematocrit 31.8 % (37.0-47.0); Hemoglobin 10.4 g/dL (11.5-15.3); Mean Corpuscular HGB Conc 32.7 g/dL (30.0-36.0); Mean Corpuscular Hemoglobin 28.7 pg (28.0-34.0); Mean Corpuscular Volume 87.6 fl (81-99); Mean Platelet Volume 11.5 fL (7.4-10.4); Platelet Count 206 10^3/cmm (130-400); Red Blood Count 3.63 10^6/uL (4.1-5.3); Red Cell Distribution Width 12.3 % (12.1-15.1); White Blood Count 8.8 10^3/uL (4.0-10.0)
--- NOTE | 2021-05-24 05:48 | ANE.PACU2 ---
Inpatient post-anesthesia follow up: Airway intact: Yes Vital signs: Temperature 98.2 F Pulse Rate 72 Respiratory Rate 16 Blood Pressure 108/70 Pulse Oximetry 97 Oxygen Delivery Me thod Room Air Oxygen Flow Rate Fraction of Inspir ed Oxygen Hydration adequate: Yes Nausea and vomiting: No Pain level: 2 Mental status: Baseline
--- NOTE | 2021-05-24 06:52 | ANES.PREANE2 ---
Pre-Anesthetic Assessment Pre-Anesthetic Assessment: Height/Weight: Height 1.6 m Weight 83 kg Temp Pulse Resp BP Pulse Ox 97 F L 70 18 123/68 98 05/24/21 06:45 05/24/21 06:45 05/24/21 06:45 05/24/21 06:45 05/24/21 06:45 Preop Diagnosis: Desire permanent sterilization Proposed Procedure: Operation Date: 05/24/21 07:00 Proposed Procedures p Bilateral Tubal Ligation(Not Applicable) - Hoang Reyna MD Was Beta [place] taken within 24 hours: N/A Was Clonidine taken within 24 hours: N/A Social: Social History: Tobacco Exam: Pre-Anes Outpt Exam: alert, oriented x 3, clear to auscultation bilaterally and regular rate & rhythm Airway: Submandibular: WNL Cervical ROM: WNL MP: 2 Pulmonary: Pulmonary: COPD Hepatic: Hepatic: Hepatitis (Chronic Hep C) Anesthetic Plan: ASA status: 2 Anesthesia: Anesthesia Evaluation and General Risk of > 500 ml blood loss (7ml/kg in children): No Meds/Allergies Current Medications: Current Medications Generic Name Dose Route Start Last Admin Trade Name Freq PRN Reason Stop Dose Admin Benzocaine 1 spray 05/23/21 15:07 05/23/21 15:40 Benzocaine-Menth ol 78 Gm Canister TOPICAL 1 can PRN PRN Administration PAIN Docusate Sodium 100 mg 05/23/21 18:00 05/23/21 18:07 Docusate Sodium 100 Mg Capsule PO 100 mg BID RYAN Administration Ibuprofen 800 mg 05/23/21 15:07 05/23/21 20:15 Ibuprofen 800 Mg Tablet PO 800 mg TID RYAN Administration Lanolin 1 applic 05/23/21 15:07 05/23/21 15:40 Lanolin Oint 7 G m TOPICAL 1 tube PRN PRN Administration DRYNESS Nicotine 1 patch 05/23/21 16:05 05/23/21 17:02 Nicotine 14 Mg P atch TRANSDERMA 1 patch DAILY RYAN Administration PFSH Anesthesia PFSH: Medical History Hepatitis C History of illicit drug use Sober date 2015 No pertinent past medical history neghx: htn,dm,thyroid,dvt/pe PCP: None TMJ pain dysfunction syndrome Surgical History Hx of dilation and curettage (~2014) Family History Father Diabetes Clotting disorder Hypertension Grandmother Diabetes paternal Family/Other Thyroid condition maternal aunt Sister Thyroid condition Ovarian cancer diagnosis age unknown Denies family history of Colon cancer Heart disease Hyperlipidemia Breast cancer Uterine cancer Stroke Social History Smoking and tobacco status: current every day smoker cigarettes Packs smoked per day: 0.25 Alcohol intake: former Year of sobriety/quit date alcohol: 2015 Other details last substance use: hitsory of methamphetamines, marijuana and opiate abuse Female Reproductive History: Date of last menstrual period: 04/22/20 : 4 Data Anesthesia CBC & Chem 7: 05/24/21 01:50 Other Labs: Laboratory Results - last 48 hr 05/22/21 05/22/21 05/24/21 17:30 18:40 01:50 WBC Cancelled 8.0 8.8 Corrected WBC Cancelled RBC Cancelled 3.75 L 3.63 L Hgb Cancelled 10.8 L 10.4 L Hct Cancelled 31.9 L 31.8 L MCV Cancelled 85.1 87.6 MCH Cancelled 28.8 28.7 MCHC Cancelled 33.9 32.7 RDW Cancelled 12.2 12.3 Plt Count Cancelled 240 206 MPV Cancelled 11.5 H 11.5 H Gran % Cancelled Neut % (Auto) Cancelled 72.1 Lymph % (Auto) Cancelled 18.8 [place] % (Auto) Cancelled 7.2 Eos % (Auto) Cancelled 0.9 Baso % (Auto) Cancelled 0.5 Neut # (Auto) Cancelled 5.80 Lymph # (Auto) Cancelled 1.5 [place] # (Auto) Cancelled 0.6 Eos # (Auto) Cancelled 0.1 Baso # (Auto) Cancelled 0.0 Absolute Gran (auto) Cancelled Nucleated RBC % (auto) Cancelled 0 Nucleated RBCs # Cancelled 0.0 Cardiac Studies: No Data to Display
[2021-05-24] MEDS: sodium chloride 0.9% 1,000 ML 30 ML IV (07:06)
--- NOTE | 2021-05-24 07:46 | PM.OP ---
Operative Report Date of procedure: May 24, 2021 Pre-op Diagnosis: Status post spontaneous vaginal delivery, Desire permanent sterilization Post-op diagnosis: same Procedure Done: bilateral tubal ligation Specimens removed/disposition: Left and right fallopian tube segments Pathology: Left and right fallopian tubes segments Surgeon: Hoang Reyna MD Anesthesia: General Estimated blood loss (mL): 5 IV fluids (mL): 500 Complications: None Condition: stable Disposition: PACU Procedure: After assuring informed consent. The patient was informed of the risks and benefits of the procedure. Risks included but were not limited to bleeding, infection, and injury to internal organs. The patient was counseled on the risk of sterilization failure. The patient was informed that in the event a occurs the risk of ectopic is increased. The patient was counseled that bilateral tubal ligation is intended to be permanent and nonreversible. She was also counseled that there are nonpermanent forms of control available to her. The patient expressed understanding of the risks involved, all questions were answered, and the patient consented to the procedure. The patient was taken to the operating room and general anesthesia administered. Time-out procedure was performed. A small, transverse, infraumbilical skin incision was made with a scalpel, and the incision was carried down through the underlying fascia until the peritoneum was identified and entered. The left fallopian tube was identified, brought into the incision and grasped with a Naya clamp. The tube was then followed out to the fimbria. An avascular midsection of the fallopian tube was grasped with a [place] clamp and brought into a knuckle. Using the DRESSBOOM Fine Fusion device the fallopian tube mid segment was grasped, sealed and transected. The specimen was sent to pathology. Excellent hemostasis was noted, and the tube was returned to the abdomen. The same procedure was performed on the opposite fallopian tube. The fascia was then closed with O-Vicryl in a single layer. The skin was closed with 3-O Monocryl in a subcuticular fashion. The patient tolerated the procedure well. Needle and sponge counts were correct times 3.
[2021-05-24] MEDS: fentaNYL 50 mcg/mL INJ 2mL IVP ×2 (07:55→08:06)
[2021-05-24] MEDS: acetaminophen 325 mg Tablet 650 MG PO ×2 (09:32→19:47)
[2021-05-24] MEDS: ketorolac 30 mg/mL INJ IVP ×2 (09:33→15:38)
--- NOTE | 2021-05-24 10:49 | PC.NURSE ---
note This pt reported to her nurse she was nursing well and did not want help at this time. Left contact information for pt.
--- NOTE | 2021-05-24 11:36 | ANE.PACU2 ---
Inpatient post-anesthesia follow up: Airway intact: Yes Vital signs: Temperature 98.0 F Pulse Rate 71 Respiratory Rate 18 Blood Pressure 103/70 Pulse Oximetry 98 Oxygen Delivery Me thod Room Air Oxygen Flow Rate 8 Fraction of Inspir ed Oxygen Hydration adequate: Yes Nausea and vomiting: No Pain level: 3 Mental status: Baseline
[2021-05-24] MEDS: docusate sodium 100 mg Capsule PO (18:34)
[2021-05-24] MEDS: ibuprofen 800 mg tablet PO (22:15)
[2021-05-25] MEDS: ketorolac 30 mg/mL INJ IVP (02:05)
[2021-05-25] MEDS: acetaminophen 325 mg Tablet 650 MG PO ×2 (04:48→11:02)
[2021-05-25 04:51] VITALS: BP 102/64; PULSE 60; RESP 16; TEMP 36.6; O2SAT 97
[2021-05-25 05:08] LABS: Hematocrit 29.7 % (37.0-47.0); Hemoglobin 9.8 g/dL (11.5-15.3); Mean Corpuscular Hemoglobin 27.9 pg (28.0-34.0); Mean Corpuscular Volume 84.6 fl (81-99); Platelet Count 217 10^3/cmm (130-400); Red Blood Count 3.51 10^6/uL (4.1-5.3); Red Cell Distribution Width 12.7 % (12.1-15.1); White Blood Count 7.8 10^3/uL (4.0-10.0)
[2021-05-25] MEDS: ibuprofen 800 mg tablet PO (08:06)
[2021-05-25] MEDS: docusate sodium 100 mg Capsule PO (08:06)
[2021-05-25 10:20] VITALS: BP 110/65; PULSE 68; RESP 17
--- NOTE | 2021-05-25 13:44 | P.DS_ITS ---
Discharge Providers MOVER HELPER Date of Admission: 05/22/21 17:00 Date of Discharge: 05/25/21 Attending Provider at Admission: Jazmin Wade MD Attending Provider at Discharge: Jazmin Wade MD Primary Care Provider: Hoang Reyna MD Diagnoses at Discharge Discharge Diagnosis (1) Request for sterilization: Status: Acute Reason for Visit Reason for Visit: INDUCTION OF LABOR Hospital Course Hospital Course Mrs. Meredith admitted at term for elective induction. She progressed to have a spontaneous vaginal delivery without complications. She had requested tubal ligation. The procedure was performed the following morning without complications. Overnight observation was uneventful. She is afebrile and hemodynamically stable postoperative day 1. Tolerating diet well. Ambulating without difficulty. Pain under control with medication. Information Peripartum Data: Delivery Method: Vaginal Physical Exam Narrative: EXAM NARRATIVE: GA; alert and oriented x 3 HEENT: normal Breasts: engorged Nipples - skin intact Lungs; clear to auscultation Heart: regular rhythm, no murmurs. Abd: Appropriately tender. BS+. Uterine fundus below umbilicus. No Fundal Tenderness. minimal tenderness, incision clean and dry, no redness, pain or edema. Perineum: normal lochia. Extremities: no edema, no cyanosis, no tenderness. Urinary Catheter Management^: Pablo: Cath Placed During This Visit: yes, but has since been removed by the nurse Reason for Continuing Indwelling Catheter: Decision to DC Catheter Urinary Catheter Date of Insertion: 05/23/21 Urinary Catheter Time of Insertion: 03:00 Date Urinary Catheter Removed: 05/23/21 Time Urinary Catheter Discontinued: 13:18 Discharge Data Data Completed and Pending: Completed Studies During Hospitalization Category Date Time Status Pathology: Surgic al [PTH] Routine Pth 05/24/21 07:50 Completed Labs from last 24 hours 05/25/21 04:58 WBC 7.8 RBC 3.51 L Hgb 9.8 L Hct 29.7 L MCV 84.6 MCH 27.9 L MCHC 33.0 RDW 12.7 Plt Count 217 MPV 11.0 H Vitals: Last Vital Signs Temp 97.8 F 05/25/21 04:51 Pulse 60 05/25/21 04:51 Resp 16 05/25/21 04:51 BP 102/64 05/25/21 04:51 Pulse Ox 97 05/25/21 04:51 Discharge Plan Discharge Patient Disposition: Home Condition: Stable Prescriptions: New acetaminophen 325 mg capsule 325 mg PO Q4H PRN (Reason: fever or pain) Qty: 60 RF: 0 ferrous sulfate [Iron (ferrous sulfate)] 325 mg (65 mg iron) tablet 325 mg PO BID Qty: 60 RF: 0 ibuprofen 800 mg tablet 800 mg PO TID PRN (Reason: pain) Qty: 60 RF: 0 Continued Gummy 400 mcg-35 mg -25 mg-5 mg tablet,chewable 1 tab PO DAILY RF: 0 famotidine [Pepcid AC] 20 mg tablet 20 mg PO DAILY PRNRF: 0 sodium chloride [Saline Nasal] 0.65 % aerosol,spray 1 spray intranasal BID PRNRF: 0 docusate sodium 100 mg capsule 100 mg PO DAILY Qty: 30 RF: 0 (DME) breast pump Device See Rx Instructions .Route Qty: 1 RF: 0 Discharge Orders: Discharge Order (Routine); Ordered 05/25/21 Ordered By: Hoang Reyna Referrals: Hoang Reyna MD [Primary Care Provider] - Discharge Diet: Usual diet Discharge Activity: Increase activity as tolerated Patient Instructions: Depression (GEN), Perineal Care (GEN), Bleeding (GEN), OB Food/Drug Interaction Guide, OB Care at Home, Opioid Safety, OB Proud Parent Packet, OB Vaginal Deliveries, Female Sterilization, Tubal Ligation (GEN) Activity Restrictions/Additional Instructions: 1. Please call [facility] on next working day to make your post-operative appointment in 2 weeks. 2. Please stay home until you come back to the clinic on first post-operative check up. 3. Please follow instructions on your medications CAREFULLY. 4. If you have abdominal incision, do not cover it unless dressing is necessary because of drainage. OK to shower, but avoid bath. Leave steri-strips until they fall off. If they are still on one week after surgery, you may remove them. 5. If you had vaginal surgery or vaginal repair, Dr. Reyna may instruct you to take SITZ bath. 6. Yellow, blood tinged odorous vaginal discharge is usually normal after hysterectomy or vaginal surgeries. 7. No sexual intercourse, tampons, or douches until you are completely released from the post-operative care. 8. Avoid constipation by eating right and maybe using some Metamucil or Milk of Magnesia. 9. All prescription refills are given during the working hours. Please do no wait till it runs out. Call the clinic at [phone] before your medication runs out. The clinic will get in touch with your doctor to prescribe medications if necessary. 10. Please remain within 40 mile radius from our hospital because emergencies do happen now and then during the post-operative period. 11. If you have stairs at home, take one step at a time slowly and minimize the number of trips. It helps to stay in one floor for the next few days. No lifting except what you can lift by one hand until you are released from the post-operative care. 12. Driving is discouraged until you are well healed. It may be 3-4 weeks before you feel strong enough to drive. You should be able to turn and look through the rear window without pain and you should be able to push the brake pedal very hard without pain before you drive. No fast rules, but SAFETY should be your primary concern. DO NOT drive if you are on sedating medications such as narcotics. 13. Call the clinic (during working hours) to make urgent appointment or go to the Emergency room, if any of the following occurs: i. Vaginal bleeding becomes heavy, more than a period. ii. Incision becomes red and sore, or drains pus. iii. Your temperature is over 100.4 or you have chill. iv. IV site becomes red and swollen (a little ``knot?? is usually OK) v. Persistent nausea and vomiting vi. Persistent constipation or diarrhea vii. Rash or allergic reaction to medications. 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
[2021-05-25 14:45] VITALS: BP 111/66; PULSE 82; RESP 17
== END 2021-05-25 14:45 | disposition home or self-care (01) | DRG 798 ==
PROVIDERS: Admitting Provider Obstetrics & Gynecology; PCP Obstetrics & Gynecology; Visit Provider Obstetrics & Gynecology
PROC: 0U574ZZ Destruction of Bilateral Fallopian Tubes, Percutaneous Endoscopic Approach (ICD-10-PCS; CPT 58605; principal; 2021-05-24 07:00)
DX: O98.42 Viral hepatitis complicating childbirth (principal); Z37.0 Single live birth; B18.2 Chronic viral hepatitis C; O99.334 Smoking (tobacco) complicating childbirth; F17.210 Nicotine dependence, cigarettes, uncomplicated; Z3A.39 39 weeks gestation of pregnancy; F15.11 Other stimulant abuse, in remission; F12.11 Cannabis abuse, in remission; F11.11 Opioid abuse, in remission; Z86.16 Personal history of COVID-19
CPT/HCPCS: 36415; 51702; 59409; 85025; 85027; 88302; 96365; J0690; J1885; J2405; J2704; J2710; J2795; J3010; J3490; J7030

== ENCOUNTER → 2021-07-05 14:25 | Outpatient (BNVA) | payer OTHER, SELFPAY | PROVIDERS: PCP Obstetrics & Gynecology; Visit Provider Obstetrics & Gynecology | DX: R87.610 Atypical squamous cells of undetermined significance on cytologic smear of cervix (ASC-US) (principal); Z48.816 Encounter for surgical aftercare following surgery on the genitourinary system | CPT/HCPCS: 88175 ==

== ENCOUNTER → 2022-01-23 11:10 | Outpatient (BNVA) | payer OTHER, SELFPAY | PROVIDERS: Visit Provider Registered Nurse Neonatal Intensive Care | DX: Z20.822 Contact with and (suspected) exposure to COVID-19 (principal); U07.1 COVID-19 | CPT/HCPCS: 87635; 87801 ==

== ENCOUNTER 2022-07-13 01:17 | Emergency (ER) | payer OTHER, SELFPAY ==
[2022-07-13 01:26] VITALS: BMI 24.6
[2022-07-13 01:28] VITALS: BP 102/60; PULSE 118; RESP 16; TEMP 38.6; O2SAT 100
--- NOTE | 2022-07-13 01:52 | ED_ITS ---
Documented by User: TIERRA Mckeon 07/13/22 02:02 HPI - Abdominal Pain General: Chief Complaint: Abdominal Pain Stated Complaint: right side pain front abd to back Time Seen by Provider: 07/13/22 01:21 Source: patient Mode of arrival: ambulatory Limitations: no limitations History of Present Illness: Patient presents to the emergency department [facility] for evaluation treatment of right lower quadrant pain and right flank pain which she reports has been building in intensity through the day. Patient states she noticed it earlier today however, it was only over the last 2 to 3 hours at the pain is gotten significantly worse. Patient states she is now also nauseated but has not had any vomiting. She states she has felt constipated. She denies any dysuria but states she seems to be having some difficulty getting her urine out today. Patient's pain wraps around the right flank up to the right mid back region. She has not noticed any blood in her urine. Patient denies any previous history of kidney stones. She does still have her appendix. Associated Symptoms: Reports constipation and nausea Related Data: Date of Last Menstrual Period: 04/22/20 Review of Systems General: Reports: 10 or more systems reviewed and unremarkable except in HPI and below GI: Reports: abdominal pain (RLQ), nausea and constipation Musc: Reports: back pain (right flank, right mid back) PFSH ED PFSH: Medical History Aftercare following surgery of the genitourinary system Hepatitis C History of illicit drug use Sober date 2015 Nausea and vomiting No pertinent past medical history neghx: htn,dm,thyroid,dvt/pe PCP: None TMJ pain dysfunction syndrome Viral syndrome Surgical History H/O tubal ligation 05/24/2021- PP bilateral tubal ligation performed by Dr. Reyna at [facility] Hx of dilation and curettage (~2014) Family History Father Diabetes Clotting disorder Hypertension Grandmother Diabetes paternal Family/Other Thyroid condition maternal aunt Sister Thyroid condition Ovarian cancer diagnosis age unknown Denies family history of Colon cancer Heart disease Hyperlipidemia Breast cancer Uterine cancer Stroke Social History (Reviewed 07/13/22 @ 01:56 by YESSENIA Mckeon Smoking and tobacco status: current every day smoker cigarettes Packs smoked per day: 0.25 Alcohol intake: former Year of sobriety/quit date alcohol: 2015 Other details last substance use: hitsory of methamphetamines, marijuana and opiate abuse Female Reproductive History: Date of last menstrual period: 04/22/20 Physical Exam Const: OTHER: Patient is alert and oriented but is in noticeable discomfort and laying curled up on her side in the bed. She is answering her own history. She does not appear toxic at this time. Patient is tachycardic and febrile but blood pressure is stable. O2 sat 100%. HENMT: COMMON NORMALS: normocephalic, atraumatic and hearing grossly normal bilaterally HEAD & SCALP: normocephalic and atraumatic Eye: COMMON NORMALS: Equal, round and reactive pupils present, EOMs intact bilaterally and conjunctivae normal CONJUNCTIVA: Yes conjunctivae normal PUPIL: Yes Equal, round and reactive pupils present Resp: COMMON NORMALS: normal respiratory effort, No use of accessory muscles and clear to auscultation bilaterally AUSCULTATION: clear to auscultation bilaterally GI: OTHER: Patient is tender palpation in the right lower quadrant. She is guarded but abdomen is soft. Back/Pelvis: OTHER: Patient is tender along her right mid flank extending up to the right mid back. She has positive CVA tenderness on the right. Extremity: COMMON NORMALS: normal to inspection and full ROM Psych: COMMON NORMALS: mental status grossly normal, Normal thought process present, cooperative and activity/motor behavior normal THOUGHT PROCESS: Normal thought process present Course Vital Signs: Vital signs: Vital Signs Temperature 99.2 F 07/13/22 02:58 Pulse Rate 118 H 07/13/22 01:28 Respiratory Rate 16 07/13/22 01:28 Blood Pressure 102/60 07/13/22 01:28 Pulse Oximetry 100 07/13/22 01:28 Oxygen Delivery Me thod 07/13/22 01:28 MDM - Abdominal Pain Medical Decision Making Patient presents today in significant amount of pain primarily affecting her right lower quadrant but wrapping around her flank to her right mid back. I am suspicious primarily for a kidney stone at this time given the quick progression of her pain and the severity of her pain at this time. However, patient is febrile which is either concerning for a pyelonephritis secondary to a kidney stone or, patient may still have concerning surgical abdomen such as appendicitis. We will obtain lab work and patient has been given fluids, Zofran, and I V Toradol for pain as well as her fever. Patient indicates she does not want narcotic pain medication and chart review shows she is a recovering addict. Differential Diagnosis Likely acute appendicitis, calculus of kidney, constipation, diverticulitis, gastroenteritis and small bowel obstruction Lab Data 07/13/22 02:10 07/13/22 02:10 Labs/Radiology: Radiology Impressions Abdomen/Pelvis CT 07/13/22 02:51 IMPRESSION: 1. Patchy areas of decreased enhancement of the right renal cortex consistent with pyelonephritis. 2. Ileus. 3. Mild constipation. Laboratory Results WBC 13.9 10^3/uL (4.0-10.0) H 07/13/22 02:10 RBC 5.19 10^6/uL (4.1-5.3) 07/13/22 02:10 Hgb 15.9 g/dL (11.5-15.3) H 07/13/22 02:10 Hct 46.9 % (37.0-47.0) 07/13/22 02:10 MCV 90.4 fl (81-99) 07/13/22 02:10 MCH 30.6 pg (28.0-34.0) 07/13/22 02:10 MCHC 33.9 g/dL (30.0-36.0) 07/13/22 02:10 RDW 11.5 % (12.1-15.1) L 07/13/22 02:10 Plt Count 251 10^3/cmm (130-400) 07/13/22 02:10 MPV 9.9 fL (7.4-10.4) 07/13/22 02:10 Neut % (Auto) 86.0 % 07/13/22 02:10 Lymph % (Auto) 8.0 % 07/13/22 02:10 [place] % (Auto) 5.2 % 07/13/22 02:10 Eos % (Auto) 0.1 % 07/13/22 02:10 Baso % (Auto) 0.3 % 07/13/22 02:10 Neut # (Auto) 11.99 10^3/uL (1.8-7.7) H 07/13/22 02:10 Lymph # (Auto) 1.1 10^3/uL (0.8-4.8) 07/13/22 02:10 [place] # (Auto) 0.7 10^3/uL (0.2-0.9) 07/13/22 02:10 Eos # (Auto) 0.0 10^3/uL (0.0-0.8) 07/13/22 02:10 Baso # (Auto) 0.0 10^3/uL (0.0-0.1) 07/13/22 02:10 Nucleated RBC % (auto) 0 % 07/13/22 02:10 Nucleated RBCs # 0.0 /100WBC 07/13/22 02:10 Sodium 134 mmol/L (136-145) L 07/13/22 02:10 Potassium 4.1 mmol/L (3.5-5.1) 07/13/22 02:10 Chloride 100 mmol/L (98-107) 07/13/22 02:10 Carbon Dioxide 23 mmol/L (22-29) 07/13/22 02:10 Anion Gap 15.1 (5-19) 07/13/22 02:10 BUN 9 mg/dL (6-20) 07/13/22 02:10 Creatinine 0.9 mg/dL (0.5-0.9) 07/13/22 02:10 GFR Calculation 74.0 mL/min (90-130) L 07/13/22 02:10 Glucose 90 mg/dL (65-115) 07/13/22 02:10 Calculated Osmolality 276 mOsm/kg (285-295) L 07/13/22 02:10 Calcium 10.0 mg/dL (8.5-10.5) 07/13/22 02:10 Total Bilirubin 1.0 mg/dL (0.15-1.2) 07/13/22 02:10 AST 22 U/L (0-32) 07/13/22 02:10 ALT 38 U/L (0-33) H 07/13/22 02:10 Alkaline Phosphatase 62 U/L (35-105) 07/13/22 02:10 C-Reactive Protein 46.6 mg/L (0.0-4.9) H 07/13/22 02:10 Total Protein 8.2 g/dL (6.6-8.7) 07/13/22 02:10 Albumin 5.2 g/dL (3.5-5.2) 07/13/22 02:10 Globulin 3.0 g/dL (1.3-4.6) 07/13/22 02:10 HCG, Qual Negative (Negative) 07/13/22 02:55 Urine Color Yellow (Yellow) 07/13/22 02:25 Urine Appearance Clear (CLEAR) 07/13/22 02:25 Urine pH 7 (5-7) 07/13/22 02:25 Ur Specific [place] 1.005 (1.005-1.030) 07/13/22 02:25 Urine Protein Neg (Negative) 07/13/22 02:25 Urine Glucose (UA) Norm (Normal) 07/13/22 02:25 Urine Ketones Negative (Negative) 07/13/22 02:25 Urine Blood Neg (Negative) 07/13/22 02:25 Urine Nitrate Negative (Negative) 07/13/22 02:25 Urine Bilirubin Neg (Negative) 07/13/22 02:25 Urine Urobilinogen 4 mg/dL (Negative) H 07/13/22 02:25 Ur Leukocyte Esterase Negative (Negative) 07/13/22 02:25 Influenza Type A Ag negative (Negative) 07/13/22 03:06 Influenza Type B Ag negative (Negative) 07/13/22 03:06 Discharge Plan Discharge Patient Disposition: Home Clinical Impression: Pyelonephritis Condition: Stable Prescriptions: New Cipro 500 mg tablet 500 mg PO BID Qty: 14 0RF ondansetron 4 mg tablet,disintegrating 4 mg PO Q6H PRN (Reason: nausea and vomiting) Qty: 14 0RF Naprosyn 500 mg tablet 500 mg PO BID PRN (Reason: pain) Qty: 20 0RF No Action ondansetron 4 mg tablet,disintegrating 4 mg PO Q6H PRN (Reason: nausea and vomiting) Qty: 10 0RF Gummy 400 mcg-35 mg -25 mg-5 mg tablet,chewable 1 tab PO DAILY (DME) breast pump Device See Rx Instructions .Route Qty: 1 0RF Rx Instructions: As directed ibuprofen 800 mg tablet 800 mg PO TID PRN (Reason: pain) Qty: 60 0RF acetaminophen 325 mg capsule 325 mg PO Q4H PRN (Reason: fever or pain) Qty: 60 0RF Discharge Orders: Discharge ED (Routine); Ordered 07/13/22 Ordered By: Didi Reyes Discharge Diet: Advance as tolerated Discharge Activity: Resume usual activity Patient Instructions: Kidney Infection (ED), Opioid Safety, Pain Management Coding Level of Care Code 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 Reyna at [facility] Hx of dilation and curettage (~2014) Family History Father Diabetes Clotting disorder Hypertension Grandmother Diabetes paternal Family/Other Thyroid condition maternal aunt Sister Thyroid condition Ovarian cancer diagnosis age unknown Denies family history of Colon cancer Heart disease Hyperlipidemia Breast cancer Uterine cancer Stroke Social History Smoking and tobacco status: current every day smoker cigarettes Packs smoked per day: 0.25 Alcohol intake: former Year of sobriety/quit date alcohol: 2015 Other details last substance use: hitsory of methamphetamines, marijuana and opiate abuse Course Vital Signs: Vital signs: Vital Signs Temperature 99.2 F 07/13/22 02:58 Pulse Rate 118 H 07/13/22 01:28 Respiratory Rate 16 07/13/22 01:28 Blood Pressure 102/60 07/13/22 01:28 Pulse Oximetry 100 07/13/22 01:28 Oxygen Delivery Me thod 07/13/22 01:28 MDM - Abdominal Pain Medical Decision Making Patient presents today in significant amount of pain primarily affecting her right lower quadrant but wrapping around her flank to her right mid back. I am suspicious primarily for a kidney stone at this time given the quick progression of her pain and the severity of her pain at this time. However, patient is febrile which is either concerning for a pyelonephritis secondary to a kidney stone or, patient may still have concerning surgical abdomen such as appendicitis. We will obtain lab work and patient has been given fluids, Zofran, and I V Toradol for pain as well as her fever. Patient indicates she does not want narcotic pain medication and chart review shows she is a recovering addict. Patient presents here with right flank pain along with fever and some dysuria her CT scan shows findings consistent with a pyelonephritis UA showed no bacteria but we will get a culture we will treat as a likely pyelonephritis with Cipro she is to follow with her PCP and return if worsening she understands agrees to plan. Lab Data 07/13/22 02:10 07/13/22 02:10 Labs/Radiology: Radiology Impressions Abdomen/Pelvis CT 07/13/22 02:51 IMPRESSION: 1. Patchy areas of decreased enhancement of the right renal cortex consistent with pyelonephritis. 2. Ileus. 3. Mild constipation. Laboratory Results WBC 13.9 10^3/uL (4.0-10.0) H 07/13/22 02:10 RBC 5.19 10^6/uL (4.1-5.3) 07/13/22 02:10 Hgb 15.9 g/dL (11.5-15.3) H 07/13/22 02:10 Hct 46.9 % (37.0-47.0) 07/13/22 02:10 MCV 90.4 fl (81-99) 07/13/22 02:10 MCH 30.6 pg (28.0-34.0) 07/13/22 02:10 MCHC 33.9 g/dL (30.0-36.0) 07/13/22 02:10 RDW 11.5 % (12.1-15.1) L 07/13/22 02:10 Plt Count 251 10^3/cmm (130-400) 07/13/22 02:10 MPV 9.9 fL (7.4-10.4) 07/13/22 02:10 Neut % (Auto) 86.0 % 07/13/22 02:10 Lymph % (Auto) 8.0 % 07/13/22 02:10 [place] % (Auto) 5.2 % 07/13/22 02:10 Eos % (Auto) 0.1 % 07/13/22 02:10 Baso % (Auto) 0.3 % 07/13/22 02:10 Neut # (Auto) 11.99 10^3/uL (1.8-7.7) H 07/13/22 02:10 Lymph # (Auto) 1.1 10^3/uL (0.8-4.8) 07/13/22 02:10 [place] # (Auto) 0.7 10^3/uL (0.2-0.9) 07/13/22 02:10 Eos # (Auto) 0.0 10^3/uL (0.0-0.8) 07/13/22 02:10 Baso # (Auto) 0.0 10^3/uL (0.0-0.1) 07/13/22 02:10 Nucleated RBC % (auto) 0 % 07/13/22 02:10 Nucleated RBCs # 0.0 /100WBC 07/13/22 02:10 Sodium 134 mmol/L (136-145) L 07/13/22 02:10 Potassium 4.1 mmol/L (3.5-5.1) 07/13/22 02:10 Chloride 100 mmol/L (98-107) 07/13/22 02:10 Carbon Dioxide 23 mmol/L (22-29) 07/13/22 02:10 Anion Gap 15.1 (5-19) 07/13/22 02:10 BUN 9 mg/dL (6-20) 07/13/22 02:10 Creatinine 0.9 mg/dL (0.5-0.9) 07/13/22 02:10 GFR Calculation 74.0 mL/min (90-130) L 07/13/22 02:10 Glucose 90 mg/dL (65-115) 07/13/22 02:10 Calculated Osmolality 276 mOsm/kg (285-295) L 07/13/22 02:10 Calcium 10.0 mg/dL (8.5-10.5) 07/13/22 02:10 Total Bilirubin 1.0 mg/dL (0.15-1.2) 07/13/22 02:10 AST 22 U/L (0-32) 07/13/22 02:10 ALT 38 U/L (0-33) H 07/13/22 02:10 Alkaline Phosphatase 62 U/L (35-105) 07/13/22 02:10 C-Reactive Protein 46.6 mg/L (0.0-4.9) H 07/13/22 02:10 Total Protein 8.2 g/dL (6.6-8.7) 07/13/22 02:10 Albumin 5.2 g/dL (3.5-5.2) 07/13/22 02:10 Globulin 3.0 g/dL (1.3-4.6) 07/13/22 02:10 HCG, Qual Negative (Negative) 07/13/22 02:55 Urine Color Yellow (Yellow) 07/13/22 02:25 Urine Appearance Clear (CLEAR) 07/13/22 02:25 Urine pH 7 (5-7) 07/13/22 02:25 Ur Specific [place] 1.005 (1.005-1.030) 07/13/22 02:25 Urine Protein Neg (Negative) 07/13/22 02:25 Urine Glucose (UA) Norm (Normal) 07/13/22 02:25 Urine Ketones Negative (Negative) 07/13/22 02:25 Urine Blood Neg (Negative) 07/13/22 02:25 Urine Nitrate Negative (Negative) 07/13/22 02:25 Urine Bilirubin Neg (Negative) 07/13/22 02:25 Urine Urobilinogen 4 mg/dL (Negative) H 07/13/22 02:25 Ur Leukocyte Esterase Negative (Negative) 07/13/22 02:25 Influenza Type A Ag negative (Negative) 07/13/22 03:06 Influenza Type B Ag negative (Negative) 07/13/22 03:06 Discharge Plan Discharge Patient Disposition: Home Clinical Impression: Pyelonephritis Condition: Stable Prescriptions: New Cipro 500 mg tablet 500 mg PO BID Qty: 14 0RF ondansetron 4 mg tablet,disintegrating 4 mg PO Q6H PRN (Reason: nausea and vomiting) Qty: 14 0RF Naprosyn 500 mg tablet 500 mg PO BID PRN (Reason: pain) Qty: 20 0RF No Action ondansetron 4 mg tablet,disintegrating 4 mg PO Q6H PRN (Reason: nausea and vomiting) Qty: 10 0RF Gummy 400 mcg-35 mg -25 mg-5 mg tablet,chewable 1 tab PO DAILY (DME) breast pump Device See Rx Instructions .Route Qty: 1 0RF Rx Instructions: As directed ibuprofen 800 mg tablet 800 mg PO TID PRN (Reason: pain) Qty: 60 0RF acetaminophen 325 mg capsule 325 mg PO Q4H PRN (Reason: fever or pain) Qty: 60 0RF Discharge Orders: Discharge ED (Routine); Ordered 07/13/22 Ordered By: Didi Reyes Discharge Diet: Advance as tolerated Discharge Activity: Resume usual activity Patient Instructions: Kidney Infection (ED), Opioid Safety, Pain Management Coding Level of Care Code 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
[2022-07-13 02:16] LABS: Basophils % 0.3 %; Eosinophils % 0.1 %; Hematocrit 46.9 % (37.0-47.0); Hemoglobin 15.9 g/dL (11.5-15.3); Lymphocytes # 1.1 10^3/uL (0.8-4.8); Mean Corpuscular HGB Conc 33.9 g/dL (30.0-36.0); Mean Corpuscular Hemoglobin 30.6 pg (28.0-34.0); Mean Corpuscular Volume 90.4 fl (81-99); Mean Platelet Volume 9.9 fL (7.4-10.4); Monocytes # 0.7 10^3/uL (0.2-0.9); Monocytes % 5.2 %; Neutrophils # 11.99 10^3/uL (1.8-7.7); Nucleated Red Blood Cells % 0 %; Platelet Count 251 10^3/cmm (130-400); Red Blood Count 5.19 10^6/uL (4.1-5.3); Red Cell Distribution Width 11.5 % (12.1-15.1); White Blood Count 13.9 10^3/uL (4.0-10.0)
[2022-07-13] MEDS: ondansetron 2 mg/ML SDV 2 mL 4 MG IVP ×2 (02:28→05:00)
[2022-07-13] MEDS: ketorolac 30 mg/mL INJ IVP (02:28)
[2022-07-13 02:33] LABS: Alanine Aminotransferase 38 U/L (0-33); Albumin Level 5.2 g/dL (3.5-5.2); Alkaline Phosphatase 62 U/L (35-105); Anion Gap 15.1 (5-19); Aspartate Amino Transferase 22 U/L (0-32); Blood Urea Nitrogen 9 mg/dL (6-20); C Reactive Protein 46.6 mg/L (0.0-4.9); Carbon Dioxide 23 mmol/L (22-29); Chloride 100 mmol/L (98-107); Glucose 90 mg/dL (65-115); Osmolality Calculated 276 mOsm/kg (285-295); Potassium 4.1 mmol/L (3.5-5.1); Sodium 134 mmol/L (136-145); Total Protein 8.2 g/dL (6.6-8.7)
[2022-07-13] MEDS: sodium chloride 0.9% 1,000 ML 999 ML IV ×2 (02:45→04:04)
--- NOTE | 2022-07-13 02:51 | CTR_ITS ---
PROCEDURE INFORMATION: Exam: CT Abdomen And Pelvis With Contrast Exam date and time: 07/13/2022 3:16 AM Age: 31 years old Clinical indication: Nausea and vomiting; Abdominal pain; Localized; Right lower quadrant (rlq); Prior surgery; Surgery type: Tubal ligation; Patient HX: C/O rlq pain with n/v. History of hep c. ; Additional info: Abd pain TECHNIQUE: Imaging protocol: Computed tomography of the abdomen and pelvis with contrast. Radiation optimization: All CT scans at this facility use at least one of these dose optimization techniques: automated exposure control; mA and/or kV adjustment per patient size (includes targeted exams where dose is matched to clinical indication); or iterative reconstruction. Contrast material: OMNI 350; Contrast volume: 100 ml; Contrast route: INTRAVENOUS (IV); COMPARISON: CT kidney stone [id number] 06/15/2020 7:24 PM RADIATION DOSE METRICS: Total DLP (mGy-cm): 334.93 FINDINGS: Lungs: The lung bases are clear. No effusion Liver: Normal. No mass. Gallbladder and bile ducts: No wall thickening, pericholecystic fluid or stones. Pancreas: Normal. No ductal dilation. Spleen: Normal. No splenomegaly. Adrenal glands: Normal. No mass. Kidneys and ureters: Patchy areas of decreased enhancement of the right renal cortex consistent with pyelonephritis. Stomach and bowel: There are few loops of gas and fluid-filled small bowel with a balanced amount of gas and fluid in the colon. Mild amount of formed stool in the colon. Appendix: No evidence of appendicitis. Intraperitoneal space: Unremarkable. No free air. No significant fluid collection. Vasculature: Unremarkable. No abdominal aortic aneurysm. Lymph nodes: Unremarkable. No enlarged lymph nodes. Urinary bladder: Unremarkable as visualized. Reproductive: Unremarkable as visualized. Bones/joints: Unremarkable. No acute fracture. Soft tissues: Unremarkable. CT/CT abdomen pelvis w con* [id number] IMPRESSION: 1. Patchy areas of decreased enhancement of the right renal cortex consistent with pyelonephritis. 2. Ileus. 3. Mild constipation.
[2022-07-13 02:58] VITALS: TEMP 37.3
[2022-07-13 02:59] LABS: Add Urine Microscopic? NO; Charge for UA Resulting for Rev
[2022-07-13 03:00] VITALS: BP 116/82; PULSE 88; RESP 18; O2SAT 99
[2022-07-13 03:09] LABS: Bilirubin Urine Neg (Negative); Blood Urine Neg (Negative); Glucose Urine UA Norm (Normal); Ketones Urine Negative (Negative); Nitrate Urine Negative (Negative); Protein Urine Neg (Negative); Specific Gravity, Urine 1.005 (1.005-1.030); Urine Appearance Clear (CLEAR); Urine Color Yellow (Yellow); pH Urine 7 (5-7)
[2022-07-13 03:09] LABS: HCG Qualitative Urine. Negative (Negative)
[2022-07-13 03:10] LABS: Leukocyte Esterase Urine Negative (Negative); Urobilinogen Urine 4 mg/dL (Negative)
[2022-07-13] MEDS: iohexol 350 mg/mL 500 mL Btl (per mL) IV (03:20)
[2022-07-13 03:28] LABS: Influenza A by IFA negative (Negative); Influenza B by IFA negative (Negative)
[2022-07-13 04:00] VITALS: BP 109/66; PULSE 90; RESP 18; O2SAT 100
[2022-07-13] MEDS: ciprofloxacin 500 mg Tablet PO (05:14)
[2022-07-13 05:21] VITALS: BP 105/68; PULSE 92; RESP 18; O2SAT 100
== END 2022-07-13 05:22 | disposition home or self-care (01) ==
PROVIDERS: Physician Assistant; Emergency Provider Emergency Medicine
DX: N12 Tubulo-interstitial nephritis, not specified as acute or chronic (principal); F17.210 Nicotine dependence, cigarettes, uncomplicated; Z86.19 Personal history of other infectious and parasitic diseases
CPT/HCPCS: 74177; 80053; 81003; 81025; 85025; 86140; 87077; 87086; 87186; 87804; 96361; 96374; 96375; 96376; 99285; J1885; J2405; J7030; Q9967

== ENCOUNTER 2022-07-14 14:48 | Inpatient (IN) | payer OTHER, SELFPAY ==
[2022-07-14 14:51] VITALS: BP 103/60; PULSE 102; RESP 14; TEMP 36.6; O2SAT 100; BMI 25.4
--- NOTE | 2022-07-14 15:51 | CTR_ITS ---
PROCEDURE INFORMATION: Exam: CT Abdomen And Pelvis With Contrast Exam date and time: 07/14/2022 3:58 PM Age: 31 years old Clinical indication: Abdominal pain; Localized; Right; Prior surgery; Surgery type: Tubal ligation; Additional info: Right abd/flank pain w/ sepsis TECHNIQUE: Imaging protocol: Computed tomography of the abdomen and pelvis with contrast. Radiation optimization: All CT scans at this facility use at least one of these dose optimization techniques: automated exposure control; mA and/or kV adjustment per patient size (includes targeted exams where dose is matched to clinical indication); or iterative reconstruction. Contrast material: OMMNI 350; Contrast volume: 100 ml; Contrast route: INTRAVENOUS (IV); COMPARISON: CT abdomen pelvis w con* [id number] 07/13/2022 3:16 AM RADIATION DOSE METRICS: Total DLP (mGy-cm): 359.13 FINDINGS: Liver: Somewhat elongated right hepatic lobe with no cirrhosis or significant overall hepatomegaly. No suspicious lesion. Gallbladder and bile ducts: Normal. No calcified stones. No ductal dilation. Pancreas: Normal. No ductal dilation. Spleen: Minimal splenomegaly. Adrenal glands: Normal. No mass. Kidneys and ureters: There is an ill-defined hypodense region in the lateral right interpolar/upper pole renal region, measuring 3.3 x 3 x 3.4 cm with no contour deformity, which has slightly increased in size and hypodensity changes. There is minimal regional stranding. Findings may represent focal pyelonephritis. No perinephric collection or hydronephrosis. No obstructing calculi. No obvious solid enhancing mass otherwise. Stomach and bowel: Moderate-large stool burden similar to previous exam. No obstruction. No mucosal thickening. Appendix: No evidence of appendicitis. Intraperitoneal space: Trace free pelvic fluid, likely physiologic. No free air. No drainable fluid collection. Vasculature: No abdominal aortic aneurysm. Again seen is a punctate calcification measuring 2 mm at the right renal vein/IVC junction with no discrete thrombosis. Lymph nodes: No enlarged lymph nodes. Urinary bladder: Unremarkable as visualized. Reproductive: Unremarkable as visualized. Bones/joints: No acute fracture. Soft tissues: No acute findings. CT/CT abdomen pelvis w con* [id number] IMPRESSION: 1. Ill-defined right renal hypodensity as described, probably focal pyelonephritis, appearing more discrete and more hypodense than 1 day earlier. Clinical correlation follow-up should be obtained. Follow-up imaging may also be considered, to exclude complication such as abscess and to exclude neoplasm. 2. Minimal splenomegaly. 3. Trace free pelvic fluid and other nonacute findings as above.
[2022-07-14] MEDS: cefTRIAXone 2,000 MG in sodium chloride 0.9% (plus) 50 ML 100 MG IV (15:54)
--- NOTE | 2022-07-14 15:57 | ED_ITS ---
HPI - Back Pain/Injury General: Chief Complaint: Back Pain/Injury Stated Complaint: kidney infection Time Seen by Provider: 07/14/22 15:25 History of Present Illness: 31-year-old female who presents to the emergency department complaining of 3 days of progressive right flank pain and right-sided abdominal pain associated with nausea, decreased appetite, fever. She is having episodes of lightheadedness and near syncope when she stands. She had a T-max of 102 degrees yesterday and a temperature of 101 at home today. She was seen here on 13 July early in the morning. Patient had a CT scan that was at that time concerning for pyelonephritis. However, her urine (on my review) was not suggestive of UTI. SHe was placed on ciprofloxacin/naproxen and given return precautions. Patient states it has been about 1.5 days and she's only gotten worse despite taking the medication. No BMs in last 2 days. She does have hx of former drug abuse, chronic hep c, ASCUS. Associated symptoms: Reports abdominal pain and nausea; Deny difficulty walking, dysuria, hematuria, syncope, urinary urgency or vomiting Review of Systems General: Reports: 10 or more systems reviewed and unremarkable except in HPI and below Eyes: Denies: change in vision ENMT: Denies: throat pain Card: Denies: chest pain, edema or syncope Resp: Denies: dyspnea or productive cough GI: Reports: abdominal pain, nausea, constipation and GI cramping; Denies: vomiting, diarrhea or hematochezia : Reports: flank pain; Denies: difficulty voiding, dysuria, urinary frequency, urinary urgency, urinary hesitancy, oliguria, hematuria, vaginal odor, vaginal bleeding or vaginal discharge Musc: Denies: neck pain, extremity pain or extremity swelling Skin/Breast: Denies: rash or erythema Neuro: Denies: numbness in extremities, weakness in extremities, lack of coordination or difficulty walking PFS ED PFSH: Medical History Aftercare following surgery of the genitourinary system Hepatitis C History of illicit drug use Sober date 2015 Nausea and vomiting No pertinent past medical history neghx: htn,dm,thyroid,dvt/pe PCP: None TMJ pain dysfunction syndrome Viral syndrome Surgical History H/O tubal ligation 05/24/2021- PP bilateral tubal ligation performed by Dr. Reyna at [facility] Hx of dilation and curettage (~2014) Family History Father Diabetes Clotting disorder Hypertension Grandmother Diabetes paternal Family/Other Thyroid condition maternal aunt Sister Thyroid condition Ovarian cancer diagnosis age unknown Denies family history of Colon cancer Heart disease Hyperlipidemia Breast cancer Uterine cancer Stroke Social History Smoking and tobacco status: current every day smoker cigarettes Packs smoked per day: 0.25 Alcohol intake: former Year of sobriety/quit date alcohol: 2015 Other details last substance use: hitsory of methamphetamines, marijuana and opiate abuse Female Reproductive History: Date of last menstrual period: 04/22/20 Physical Exam Const: COMMON NORMALS: no limitations, alert and well nourished EXAM LIMITATIONS: no altered mental status HENMT: COMMON NORMALS: normocephalic, atraumatic and external ears normal HEAD & SCALP: normocephalic and atraumatic EXTERNAL EAR: Yes external ears normal MOUTH: no muffled voice Eye: COMMON NORMALS: EOMs intact bilaterally, conjunctivae normal and no scleral icterus CONJUNCTIVA: Yes conjunctivae normal Neck/C-Spine: GENERAL: Yes normal visual inspection and Yes trachea midline Resp: COMMON NORMALS: normal respiratory effort, No use of accessory muscles and clear to auscultation bilaterally AUSCULTATION: clear to auscultation bilaterally Cardio: COMMON NORMALS: regular rhythm RATE: tachycardic RHYTHM: regular rhythm PERIPHERAL PULSES: radial pulses present GI: COMMON NORMALS: Soft to palpation INSPECTION: Yes normal to inspection, No abdominal wall ecchymosis, No Abdominal wall edema, No Anasarca, No abdominal distension and No central obesity PALPATION: Yes Soft to palpation, Yes Tenderness to palpation present (GI) and Yes Guarding due to palpation present (GI) Back/Pelvis: OTHER: + R CVA percussion tenderness Extremity: COMMON NORMALS: normal to inspection Neuro: COMMON NORMALS: moves all extremities, no focal motor deficits and no sensory deficits noted SENSORIUM/ORIENTATION: Yes alert SPEECH: speech normal Psych: COMMON NORMALS: mental status grossly normal, Normal thought process present, cooperative, normal affect and speech normal SPEECH: Yes normal speech THOUGHT PROCESS: Normal thought process present Skin: COMMON NORMALS: no rashes or lesions noted, turgor normal and no jaundice GENERAL SKIN EXAM: no rashes or lesions noted and turgor normal Course Vital Signs: Vital signs: Vital Signs Temperature 97.9 F 07/14/22 14:51 Pulse Rate 102 H 07/14/22 14:51 Respiratory Rate 14 07/14/22 14:51 Blood Pressure 103/60 07/14/22 14:51 Pulse Oximetry 100 07/14/22 14:51 Oxygen Delivery Me thod 07/14/22 14:51 MDM - Back Pain/Injury Medical Decision Making Right sided abd/flank pain. The previous diagnosis of pyelonephritis was made off of CT appearance of kidney and presence of right flank pain. Alternative diagnoses include, atypical appendicitis, diverticulitis, colitis, hepatitis, PID into right paracolic gutter, missed ureterolithiasis, amongst multiple others. Patient screens positive for SIRS, will begin sepsis ed workup. Patient does need repeat CT abd/pelv. Patient has findings of increased hypodesity of right kidney on CT. No apparent abscess;intraparenchymal. WBC elevated, UA neg. ? hematologous spread Former drug abuse, reported clean Discussed with Dr Martinez who consulted and recommended IV abx. Dr Garcia agrees to admit. Labs 07/14/22 15:42 07/14/22 15:42 Radiology Impressions Abdomen/Pelvis CT 07/14/22 15:51 IMPRESSION: 1. Ill-defined right renal hypodensity as described, probably focal pyelonephritis, appearing more discrete and more hypodense than 1 day earlier. Clinical correlation follow-up should be obtained. Follow-up imaging may also be considered, to exclude complication such as abscess and to exclude neoplasm. 2. Minimal splenomegaly. 3. Trace free pelvic fluid and other nonacute findings as above. Laboratory Results WBC 15.8 10^3/uL (4.0-10.0) H 07/14/22 15:42 RBC 4.99 10^6/uL (4.1-5.3) 07/14/22 15:42 Hgb 15.2 g/dL (11.5-15.3) 07/14/22 15:42 Hct 45.8 % (37.0-47.0) 07/14/22 15:42 MCV 91.8 fl (81-99) 07/14/22 15:42 MCH 30.5 pg (28.0-34.0) 07/14/22 15:42 MCHC 33.2 g/dL (30.0-36.0) 07/14/22 15:42 RDW 11.9 % (12.1-15.1) L 07/14/22 15:42 Plt Count 177 10^3/cmm (130-400) 07/14/22 15:42 MPV 10.5 fL (7.4-10.4) H 07/14/22 15:42 Neut % (Auto) 83.1 % 07/14/22 15:42 Lymph % (Auto) 7.1 % 07/14/22 15:42 [place] % (Auto) 8.1 % 07/14/22 15:42 Eos % (Auto) 0.7 % 07/14/22 15:42 Baso % (Auto) 0.4 % 07/14/22 15:42 Neut # (Auto) 13.13 10^3/uL (1.8-7.7) H 07/14/22 15:42 Lymph # (Auto) 1.1 10^3/uL (0.8-4.8) 07/14/22 15:42 [place] # (Auto) 1.3 10^3/uL (0.2-0.9) H 07/14/22 15:42 Eos # (Auto) 0.1 10^3/uL (0.0-0.8) 07/14/22 15:42 Baso # (Auto) 0.1 10^3/uL (0.0-0.1) 07/14/22 15:42 Nucleated RBC % (auto) 0 % 07/14/22 15:42 Nucleated RBCs # 0.0 /100WBC 07/14/22 15:42 Sodium 137 mmol/L (136-145) 07/14/22 15:42 Potassium 3.8 mmol/L (3.5-5.1) 07/14/22 15:42 Chloride 105 mmol/L (98-107) 07/14/22 15:42 Carbon Dioxide 22 mmol/L (22-29) 07/14/22 15:42 Anion Gap 13.8 (5-19) 07/14/22 15:42 BUN 11 mg/dL (6-20) 07/14/22 15:42 Creatinine 0.7 mg/dL (0.5-0.9) 07/14/22 15:42 GFR Calculation 98.9 mL/min (90-130) 07/14/22 15:42 Glucose 84 mg/dL (65-115) 07/14/22 15:42 Calculated Osmolality 283 mOsm/kg (285-295) L 07/14/22 15:42 Lactic Acid 1.2 mmol/L (0.5-2.2) 07/14/22 15:42 Calcium 9.9 mg/dL (8.5-10.5) 07/14/22 15:42 Total Bilirubin 0.3 mg/dL (0.15-1.2) 07/14/22 15:42 AST 23 U/L (0-32) 07/14/22 15:42 ALT 37 U/L (0-33) H 07/14/22 15:42 Alkaline Phosphatase 66 U/L (35-105) 07/14/22 15:42 Total Protein 7.8 g/dL (6.6-8.7) 07/14/22 15:42 Albumin 4.3 g/dL (3.5-5.2) 07/14/22 15:42 Globulin 3.5 g/dL (1.3-4.6) 07/14/22 15:42 HCG, Qual Negative (Negative) 07/14/22 16:06 Urine Color Yellow (Yellow) 07/14/22 16:06 Urine Appearance Clear (CLEAR) 07/14/22 16:06 Urine pH 8 (5-7) H 07/14/22 16:06 Ur Specific [place] 1.005 (1.005-1.030) 07/14/22 16:06 Urine Protein Trace (Negative) 07/14/22 16:06 Urine Glucose (UA) Norm (Normal) 07/14/22 16:06 Urine Ketones Negative (Negative) 07/14/22 16:06 Urine Blood Trace (Negative) H 07/14/22 16:06 Urine Nitrate Negative (Negative) 07/14/22 16:06 Urine Bilirubin Neg (Negative) 07/14/22 16:06 Urine Urobilinogen 4 mg/dL (Negative) H 07/14/22 16:06 Ur Leukocyte Esterase Negative (Negative) 07/14/22 16:06 Urine RBC Rare /hpf (0-2) 07/14/22 16:06 Urine WBC Rare /hpf (0-5) 07/14/22 16:06 Ur Squamous Epith Cells Rare /hpf (0-5) 07/14/22 16:06 Amorphous Sediment Not Reportable 07/14/22 16:06 Urine Bacteria None /hpf (NONE) 07/14/22 16:06 Discharge Plan Discharge Patient Disposition: Admitted As Inpatient Clinical Impression: Parenchymal disease of kidney Condition: Stable Prescriptions: No Action ondansetron 4 mg tablet,disintegrating 4 mg PO Q6H PRN (Reason: nausea and vomiting) Qty: 10 0RF Gummy 400 mcg-35 mg -25 mg-5 mg tablet,chewable 1 tab PO DAILY (DME) breast pump Device See Rx Instructions .Route Qty: 1 0RF Rx Instructions: As directed ibuprofen 800 mg tablet 800 mg PO TID PRN (Reason: pain) Qty: 60 0RF acetaminophen 325 mg capsule 325 mg PO Q4H PRN (Reason: fever or pain) Qty: 60 0RF Cipro 500 mg tablet 500 mg PO BID Qty: 14 0RF ondansetron 4 mg tablet,disintegrating 4 mg PO Q6H PRN (Reason: nausea and vomiting) Qty: 14 0RF Naprosyn 500 mg tablet 500 mg PO BID PRN (Reason: pain) Qty: 20 0RF Coding Level of Care Code ED Endoscopy Rn for Chg Fwd Exam Comprehensive
[2022-07-14] MEDS: iohexol 350 mg/mL 500 mL Btl (per mL) IV (16:05)
[2022-07-14 16:06] LABS: Basophils # 0.1 10^3/uL (0.0-0.1); Basophils % 0.4 %; Eosinophils # 0.1 10^3/uL (0.0-0.8); Eosinophils % 0.7 %; Hematocrit 45.8 % (37.0-47.0); Hemoglobin 15.2 g/dL (11.5-15.3); Lymphocytes # 1.1 10^3/uL (0.8-4.8); Lymphocytes % 7.1 %; Mean Corpuscular HGB Conc 33.2 g/dL (30.0-36.0); Mean Corpuscular Hemoglobin 30.5 pg (28.0-34.0); Mean Corpuscular Volume 91.8 fl (81-99); Mean Platelet Volume 10.5 fL (7.4-10.4); Monocytes # 1.3 10^3/uL (0.2-0.9); Monocytes % 8.1 %; Neutrophils # 13.13 10^3/uL (1.8-7.7); Neutrophils % 83.1 %; Nucleated Red Blood Cells % 0 %; Platelet Count 177 10^3/cmm (130-400); Red Blood Count 4.99 10^6/uL (4.1-5.3); Red Cell Distribution Width 11.9 % (12.1-15.1); White Blood Count 15.8 10^3/uL (4.0-10.0)
[2022-07-14] MEDS: ketorolac 30 mg/mL INJ 15 MG IVP (16:35)
[2022-07-14 16:36] LABS: Alanine Aminotransferase 37 U/L (0-33); Albumin Level 4.3 g/dL (3.5-5.2); Alkaline Phosphatase 66 U/L (35-105); Anion Gap 13.8 (5-19); Aspartate Amino Transferase 23 U/L (0-32); Blood Urea Nitrogen 11 mg/dL (6-20); Calcium 9.9 mg/dL (8.5-10.5); Carbon Dioxide 22 mmol/L (22-29); Chloride 105 mmol/L (98-107); Globulin 3.5 g/dL (1.3-4.6); Glomerular Filtration Rate 98.9 mL/min (90-130); Glucose 84 mg/dL (65-115); Osmolality Calculated 283 mOsm/kg (285-295); Potassium 3.8 mmol/L (3.5-5.1); Sodium 137 mmol/L (136-145); Total Bilirubin 0.3 mg/dL (0.15-1.2); Total Protein 7.8 g/dL (6.6-8.7)
[2022-07-14] MEDS: acetaminophen 1,000 MG/100 ML PIGGYBACK 400 MG IV (16:36)
[2022-07-14 16:37] LABS: Lactic Sepsis W/Reflex 1.2 mmol/L (0.5-2.2)
[2022-07-14 17:36] LABS: Urine Appearance Clear (CLEAR); Urine Color Yellow (Yellow)
[2022-07-14 17:37] LABS: Add Urine Microscopic? YES; Bilirubin Urine Neg (Negative); Blood Urine Trace (Negative); Glucose Urine UA Norm (Normal); Ketones Urine Negative (Negative); Leukocyte Esterase Urine Negative (Negative); Nitrate Urine Negative (Negative); Protein Urine Trace (Negative); RBC Urine RARE /hpf (0-2); Specific Gravity, Urine 1.005 (1.005-1.030); Squamous Epithelial Cell Urine RARE /hpf (0-5); Urobilinogen Urine 4 mg/dL (Negative); WBC Urine RARE /hpf (0-5); pH Urine 8 (5-7)
[2022-07-14 17:39] LABS: HCG Qualitative Urine. Negative (Negative)
[2022-07-14 18:36] LABS: Lipase 28 U/L (13-60)
--- NOTE | 2022-07-14 19:00 | PC.NURSE ---
REPORT GIVEN TO JAMES LEVY ASSUMED CARE.
--- NOTE | 2022-07-14 20:29 | P.HP_ITS ---
Providers/Chief Complaint Admitting Physician: Evie Garcia MD Chief Complaint: kidney infection History of Present Illness Kory Meredith is a 31 year old female who presented to the ER on vent for right-sided flank pain she was discharged with ciprofloxacin for UTI. She is returning back for worsening of her pain, fever, chills. Patient stating that she has history of IV drug abuse but she has been clean for last 6 years, she smokes 5 cigarettes a day does not drink alcohol no marijuana abuse. She has been noticing worsening of her pain in her right flank, she has not experienced any emesis however she is endorsing nausea. She is also experiencing urinary frequency with mild dysuria towards the end. In the ER CAT scan is showing hypodense lesion of her renal parenchyma with vascular calcification no active signs of thrombus, decision was made to admit her obtain blood cultures and do work-up for her incidental finding of renal lesions Patient is not endorsing palpitations, chest pain, blurry vision but she is st ating that her hand seems more swollen Review of Systems Const: Reports: fever(s), chills and body aches Eyes: Denies: change in vision ENMT: Reports: throat pain Card: Denies: chest pain Resp: Reports: dyspnea GI: Reports: abdominal pain : Reports: flank pain and urinary frequency Musc: Reports: back pain; Denies: neck pain Skin/Breast: Denies: rash Neuro: Denies: headache(s) Psych: Reports: anxiety Endo: Denies: polyuria Moi/Lymph: Denies: easy bruising All/Imm: Denies: urticaria Medications/Allergies Home Medications Medication Instructions Recorded Confirmed Last Taken Type [id number] 400 mcg-om3 35 mg-dha 25 1 tab PO DAILY 10/22/20 01/23/22 Unknown History mg-epa 5 mg-fish oil chewable tablet ( Gummy) breast pump #1 ea 05/13/21 01/23/22 Unknown Rx acetaminophen 325 mg capsule 325 mg PO Q4H PRN fever or pain 05/25/21 01/23/22 Unknown Rx #60 caps ibuprofen 800 mg tablet 800 mg PO TID PRN pain #60 tabs 05/25/21 01/23/22 Unknown Rx ondansetron 4 mg disintegrating 4 mg PO Q6H PRN nausea and 08/30/21 01/23/22 Unknown Rx tablet vomiting #10 tabs ciprofloxacin HCl 500 mg tablet 500 mg PO BID #14 tabs 07/13/22 Unknown Rx (Cipro) naproxen 500 mg tablet (Naprosyn) 500 mg PO BID PRN pain #20 tabs 07/13/22 Unknown Rx ondansetron 4 mg disintegrating 4 mg PO Q6H PRN nausea and 07/13/22 Unknown Rx tablet vomiting #14 tabs Allergies Allergy/AdvReac Type Severity Reaction Status Date / Time No Known Allergies Allergy Verified 01/23/22 10:54 PFSH Acute PFSH: Medical History Aftercare following surgery of the genitourinary system Hepatitis C History of illicit drug use Sober date 2015 Nausea and vomiting No pertinent past medical history neghx: htn,dm,thyroid,dvt/pe PCP: None TMJ pain dysfunction syndrome Viral syndrome Surgical History H/O tubal ligation 05/24/2021- PP bilateral tubal ligation performed by Dr. Reyna at [facility] Hx of dilation and curettage (~2014) Family History Father Diabetes Clotting disorder Hypertension Grandmother Diabetes paternal Family/Other Thyroid condition maternal aunt Sister Thyroid condition Ovarian cancer diagnosis age unknown Denies family history of Colon cancer Heart disease Hyperlipidemia Breast cancer Uterine cancer Stroke Social History Smoking and tobacco status: current every day smoker cigarettes Packs smoked per day: 0.25 Alcohol intake: former Year of sobriety/quit date alcohol: 2015 Other details last substance use: hitsory of methamphetamines, marijuana and opiate abuse Female Reproductive History: Date of last menstrual period: 04/22/20 Vitals/I&O/Wt Last Vital Signs Temp 97.9 F 07/14/22 14:51 Pulse 102 H 07/14/22 14:51 Resp 14 07/14/22 14:51 BP 103/60 07/14/22 14:51 Pulse Ox 100 07/14/22 14:51 O2 Del Method 07/14/22 14:51 Weight last 48 hrs Weight 63.049 kg Physical Exam Narrative: Young female Complaining of right flank pain CVA tenderness positive No signs of murmur S1, S2 Doing well on room air Euvolemic No signs of blurry vision EOMI, PERRLA Nonfocal neuro exam No sign of splinter hemorrhages Awake and alert Anxious appearing Data 07/14/22 15:42 07/14/22 15:42 Micro: Microbiology 07/14/22 15:50 Blood Culture - Preliminary Blood SPECIMEN COLLECTED 07/14/22 15:42 Blood Culture - Preliminary Blood SPECIMEN COLLECTED A&P Assessment and plan (1) Pyelonephritis: (2) Parenchymal disease of kidney: (3) Nausea and vomiting: Plan Pyelonephritis Focal parenchymal lesions with vascular calcification(septic emboli? Versus hepatitis C related) Hepatitis C untreated Splenomegaly Smokes 5 cigarettes a day She has been afebrile today, inflammatory markers are not high, considering febrile episode from yesterday and worsening of leukocytosis I will monitor her for development of sepsis, there is no endorgan damage signs, lactic acid is normal Start patient on vancomycin and Zosyn because of history of IV drug abuse in the past Check drug screen Patient will need new PCP appointment to get her hepatitis C treated outpatient, I am not sure whether her vascular calcification renal parenchymal lesions are associated with that for now she does not have any skin rash I have requested ESR and CRP inflammatory markers are not high Obtain blood cultures Obtain echo She is not vomiting I am anticipating she will be able to go home on oral antibiotics Patient has 3 kids at home works 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 she is concerned she cannot stay more than this week and I did tell her that we might have to wait until blood culture report She is full code Regular diet DVT prophylaxis Heparin Her D-dimer is not remarkably high She might need repeat CT scan outpatient after 6 to 8 weeks to see resolution of renal parenchymal lesions she needs new PCP appointment Attestations Medical Necessity Statement*: Anticipating discharge within 48 hours Time Spent in Patient Care: 40 Coding Level of Care Code Acute Flight Steward for Eris Falk Diagnoses Pyelonephritis N12 Parenchymal disease of kidney N28.9 Nausea and vomiting R11.2
--- NOTE | 2022-07-14 21:04 | PC.PHAR ---
Pharmacokinetic dosing service Date: 07/14/22 Time: 2100 Objective: Patient: Kory Meredith Floor: 255-2 Age: 31 yo Serum creatinine: 0.7 mg/dL Height: 62.0 Inches Weight (kg): 63.049 Diagnosis: Relevant medical/social history: Cultures and sensitivities: Other labs: Assessment: IBW (kg): 50.10 Dosing wt(kg): 63.049 Estimated Creatinine clearance (ml/min): 93.8 CRCL method: Cockcroft and Gault using ibw(default). Drug selected: Vancomycin Loading dose (mg): 0 Vd (liters): 56.7 (factor used: 0.9 L/kg) Jono (hr-1): 0.082 Half life (hrs): 8.45 Recommended dose: 1250 mg Interval: 12 hrs Infusion time (hrs): 1.5 Predicted peak (mcg/mL): 33.1 Predicted trough (mcg/mL): 13.99 Total body weight is being used for vancomycin dosing. Renal function is stable [ ] /unstable [ ] Recommendations: Give Vancomycin 1250 mg q 12 hrs with an expected Cpeak of 33.1 mcg/ml and an expected Ctrough of 13.99 mcg/ml Renal dosing of other antibiotics (review renal dosing of other medications and list guidelines here): Thank you for the consult, will continue to follow. Signature: Violette Sears [facility]
[2022-07-14 21:13] LABS: D Dimer 0.74 ug/mIFEU (0-0.59)
[2022-07-14 21:15] VITALS: BP 104/64; PULSE 76; RESP 19; TEMP 36.5; O2SAT 100
[2022-07-14 21:29] LABS: Erythrocyte Sedimentation Rate 26 mm/hr (0-15)
[2022-07-14 21:51] LABS: Procalcitonin 0.42 ng/mL (0-0.5); Thyroid Stimulating Hormone 1.78 uIU/mL (0.27-4.20); Vitamin B12 530 pg/mL (232-1245)
[2022-07-14] MEDS: vancomycin 1,250 MG/250 ML PIGGYBACK 250 MG IV (22:06)
[2022-07-14] MEDS: sodium chloride 0.9% 1,000 ML 75 ML IV (22:06)
[2022-07-14 23:44] VITALS: PULSE 86; RESP 15; O2SAT 98
[2022-07-14] MEDS: piperacillin-tazobactam 3.375 GM in sodium chloride 0.9% (plus) 50 ML IV (23:59)
[2022-07-15] VITALS (8 sets, daily range): BP systolic 93–109; BP diastolic 58–71; PULSE 76–90; RESP 16–21; TEMP 36.4–36.8; O2SAT 95–100
[2022-07-15] MEDS: morphine IR 15 mg Tablet PO ×2 (03:23→10:45)
[2022-07-15 03:25] LABS: Amphetamines Screen Urine Positive (Negative); Barbiturates Screen Urine Negative (Negative); Benzodiazepines Screen Urine Negative (Negative); Cocaine Screen Urine Negative (Negative); Opiate Screen Urine Negative (Negative); PCP Screen Urine Negative (Negative); THC Screen Urine Negative (Negative)
[2022-07-15 04:56] LABS: Basophils % 0.4 %; Eosinophils # 0.1 10^3/uL (0.0-0.8); Eosinophils % 1.4 %; Hematocrit 34.8 % (37.0-47.0); Hemoglobin 11.5 g/dL (11.5-15.3); Lymphocytes # 1.3 10^3/uL (0.8-4.8); Lymphocytes % 12.8 %; Mean Corpuscular Hemoglobin 30.2 pg (28.0-34.0); Mean Corpuscular Volume 91.3 fl (81-99); Mean Platelet Volume 10.3 fL (7.4-10.4); Monocytes # 1.2 10^3/uL (0.2-0.9); Monocytes % 12.6 %; Neutrophils # 7.05 10^3/uL (1.8-7.7); Neutrophils % 72.4 %; Nucleated Red Blood Cells % 0 %; Platelet Count 151 10^3/cmm (130-400); Red Blood Count 3.81 10^6/uL (4.1-5.3); Red Cell Distribution Width 11.9 % (12.1-15.1); White Blood Count 9.8 10^3/uL (4.0-10.0)
[2022-07-15 05:16] LABS: Blood Urea Nitrogen 9 mg/dL (6-20); C Reactive Protein 118.2 mg/L (0.0-4.9); Calcium 8.3 mg/dL (8.5-10.5); Carbon Dioxide 21 mmol/L (22-29); Glomerular Filtration Rate 118.2 mL/min (90-130); Glucose 110 mg/dL (65-115); Magnesium 1.5 mg/dL (1.7-2.3); Phosphorus 2.5 mg/dL (2.5-4.5); Potassium 3.5 mmol/L (3.5-5.1)
--- NOTE | 2022-07-15 06:00 | USCV_ITS ---
Kory Meredith Age: 31 Gender: F : 1990 Exam Date: 07/15/2022 12:09 Ordering Phys: Kieran Leigh MD Technologist: ZABRINA [place] [facility] [place] Indication: IVDA BP: 100 / 64 HR: 64 Rhythm: Sinus Technical Quality: Adequate MEASUREMENTS (Male / Female) Normal Values 2D ECHO LV Diastolic Diameter PLAX 4.5 cm 4.2 - 5.9 / 3.9 - 5.3 cm LV Systolic Diameter PLAX 3.3 cm IVS Diastolic Thickness 0.6 cm 0.6 - 1.0 / 0.6 - 0.9 cm IVS Systolic Thickness 0.8 cm LVPW Diastolic Thickness 0.7 cm 0.6 - 1.0 / 0.6 - 0.9 cm LVPW Systolic Thickness 0.9 cm LVOT Diameter 2.3 cm LV Ejection Fraction 2D Teich 52.1 % LV Ejection Fraction MOD 2C 59.3 % LV Ejection Fraction 2C AL 59.7 % LA Diameter 2.9 cm IVC Diameter 1.5 cm M-MODE Aortic Annulus Diameter 2.9 cm LA Ao Ratio MM 1.1 MV E Point Septal Separation 0.4 cm DOPPLER AV Peak Velocity 118.0 cm/s LVOT Peak Velocity 101.0 cm/s AV Area Cont Eq vti 3.5 cm squared AV Area Cont Eq pk 3.6 cm squared MV Area PHT 3.3 cm squared Mitral E to A Ratio 1.8 MV E' Velocity 55.5 cm/s Mitral E to MV E' Ratio 6.5 Mitral E to LV E' Lateral Ratio 5.6 Mitral E to LV E' Septal Ratio 7.7 TR Peak Velocity 236.0 cm/s TR Peak Gradient 22.3 mmHg TV Peak E Velocity 59.0 cm/s Right Atrial Pressure 3.0 mmHg Pulmonary Artery Systolic Pressu 25.3 mmHg PV Peak Velocity 85.0 cm/s FINDINGS Left Ventricle Normal left ventricular size, systolic function and wall thickness, with no regional wall motion abnormalities. Normal left ventricular wall thickness. Normal diastolic filling pattern. Right Ventricle The right ventricle is normal in size and function. Right Atrium The right atrium is normal in size. Left Atrium The left atrium is normal in size. Mitral Valve Structurally normal mitral valve without significant stenosis or prolapse. There is no mitral regurgitation. Aortic Valve Structurally normal aortic valve without significant sclerosis or stenosis. There is no aortic regurgitation. Tricuspid Valve Structurally normal tricuspid valve without significant stenosis and mild regurgitation. Pulmonary artery systolic pressure is normal. Pulmonic Valve Structurally normal pulmonic valve without significant stenosis. There is no pulmonic regurgitation. Pericardium Normal pericardium without effusion. Aorta Normal ascending aorta dimension. IVC The inferior vena cava appears normal. CONCLUSIONS Normal left ventricular size, systolic function and wall thickness, with no regional wall motion abnormalities. Normal left ventricular wall thickness. Normal diastolic filling pattern. Structurally normal tricuspid valve without significant stenosis and mild regurgitation. Pulmonary artery systolic pressure is normal. No vegetations Shai Lock MD (Electronically Signed) Final Date: 16 July 2022 13:57 S
[2022-07-15] MEDS: piperacillin-tazobactam 3.375 GM in sodium chloride 0.9% (plus) 50 ML IV ×3 (06:35→23:49)
[2022-07-15 09:51] LABS: Sodium 140 mmol/L (136-145)
[2022-07-15] MEDS: nicotine 7 mg Patch 1 PATCH TRANSDERMA (09:51)
[2022-07-15 09:52] LABS: Anion Gap 11.5 (5-19); Chloride 111 mmol/L (98-107); Osmolality Calculated 289 mOsm/kg (285-295)
[2022-07-15] MEDS: vancomycin 1,250 MG/250 ML PIGGYBACK 250 MG IV ×2 (09:55→22:16)
[2022-07-15 10:48] LABS: Sodium 140 mmol/L (136-145)
[2022-07-15] MEDS: sodium chloride 0.9% 1,000 ML 75 ML IV (11:28)
--- NOTE | 2022-07-15 11:31 | PM.PN ---
Subjective Subjective: seen this am feels feverish has flank pain and tenderness on right side sodium 123 this am. possibly lab error, test being repeated. pt not very happy with being in the hospital. states that if her IV comes out, she will not let us place another one Vitals/I&O/Wt Last Vital Signs Temp 97.5 F L 07/15/22 07:49 Pulse 84 07/15/22 07:49 Resp 18 07/15/22 10:45 BP 100/64 07/15/22 07:49 Pulse Ox 97 07/15/22 07:49 O2 Del Method 07/15/22 07:49 07/14/22 07/15/22 07/15/22 22:59 06:59 14:59 Intake Total 480 / 480 600 / 1080 290 / 290 Output Total 1450 / 1450 750 / 750 Balance 480 / 480 -850 / -370 -460 / -460 Weight last 48 hrs Weight 63.049 kg Physical Exam Narrative: Young female Complaining of right flank pain CVA tenderness positive No signs of murmur S1, S2 CTA b/l, no wheezes or ronchi Euvolemic Nonfocal neuro exam No sign of splinter hemorrhages Awake and alert Anxious appearing Data 07/15/22 04:42 07/15/22 09:38 Micro: Microbiology 07/14/22 15:50 Blood Culture - Preliminary Blood SPECIMEN COLLECTED 07/14/22 15:42 Blood Culture - Preliminary Blood SPECIMEN COLLECTED A&P Assessment and plan (1) Pyelonephritis: (2) Parenchymal disease of kidney: (3) Nausea and vomiting: Plan Pyelonephritis Focal parenchymal lesions with vascular calcification(septic emboli? Versus hepatitis C related) Hepatitis C untreated Splenomegaly Smokes 5 cigarettes a day She has been afebrile today, inflammatory markers are not high, considering febrile episode from yesterday and worsening of leukocytosis I will monitor her for development of sepsis, there is no endorgan damage signs, lactic acid is normal Continue patient on vancomycin and Zosyn because of history of IV drug abuse in the past Drug screen positive for methamphetamines Patient will need new PCP appointment to get her hepatitis C treated outpatient, I am not sure whether her vascular calcification renal parenchymal lesions are associated with that for now she does not have any skin rash I have requested ESR and CRP inflammatory markers are not high Obtain blood cultures Obtain echo Await urine cultures She is full code Regular diet DVT prophylaxis Heparin Her D-dimer is not remarkably high She might need repeat CT scan outpatient after 6 to 8 weeks to see resolution of renal parenchymal lesions she needs new PCP appointment Attestations Medical Necessity Statement*: needs continued hospitalization for mgmt of pyelonephritis and UTI. Will need to await cultures PTD. 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
[2022-07-15] MEDS: magnesium sulfate premix 2 GM/50 ML PIGGYBACK IV (12:39)
--- NOTE | 2022-07-15 13:11 | PC.NURSE ---
pt was crying stated iv mag was burning very badly pt iv flushed easily and had good blood return...pt refused to let me turn the mag back on ...ns continues at 75/hr...dr rodriguez was notified
--- NOTE | 2022-07-15 14:30 | P.CONIM_ITS ---
Providers/Reason For Consult Consulting Physician/Specialty*: Urology/Martinez Reason for Consult*: Right renal infection with acute nonsuppurative pyelonephritis picture versus early abscess Requesting Physician: Dr. Reyes/Dr. Retana Attending Physician: Nena Retana MD History of Present Illness History of Present Illness Kory Meredith is a 31 year old female with a history of recurrent urinary tract infections who 4 days ago noticed some increasing urgency and pressure and slight burning with urination that she did associate with previous symptoms occurring with UTIs. The next morning she woke up with increasing back pain on the right side and had associated confusion weakness and feeling faint. She was seen in the emergency department on 07/13/[address] scan showed some ill-defined hypodensity in the right interpolar area. No clear abscess. No significant inflammatory changes. Her urine looked relatively bland though. Was started on CIPROFLOXACIN and recommended for outpatient follow-up. Presented back to the emergency department yesterday with increasing pain weakness cloudy head. Repeat CT scan showed a dramatic change with poor enhancement in the right interpolar area more suspicious for either nonsuppurative pyelonephritis or early abscess. There is no evidence of perirenal involvement. Her white count had continued to increase from 13.9-15.8. She had a fever of 102 at that point. C-reactive protein was 118.2 and her urine still looks relatively bland. Based on the change in her CT scan though it was felt that she was probably developing a renal abscess and was admitted for IV antibiotics. I did review the CT scan and it does appear to be more consistent with a nonsuppurative pyelonephritis/abscess versus embolic phenomenon. There is no evidence of any wedged shape defect. The entire clinical picture point certainly more toward infectious than embolic source. She denied any IV drug abuse for over 6 years. 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 Was started on ceftriaxone. Her clinical picture has improved. She has had no more fever. Her pain is still bad but it is better. White count has decreased to 9.8. Still pretty tender on her right flank and right upper quadrant area. She is also complaining of some swelling in her extremities and some coolness of her right upper extremity. Review of Systems Const: Reports: fever(s), chills, fatigue and malaise Eyes: Denies: change in vision or yellow eyes ENMT: Denies: hoarseness Card: Denies: chest pain or palpitations Resp: Reports: dyspnea (Mild) and pain on inspiration GI: Reports: abdominal pain, nausea and vomiting; Denies: diarrhea : Reports: flank pain, difficulty voiding, dysuria and urinary urgency Musc: Reports: back pain, extremity swelling and joint pain; Denies: neck pain or joint redness Skin/Breast: Denies: rash Neuro: Reports: confusion (Transient); Denies: Slurred speech present, difficulty communicating thoughts or seizure- like activity Psych: Reports: anxiety and irritability; Denies: memory loss Endo: Denies: flushing Moi/Lymph: Denies: easy bruising, easy bleeding or enlarged lymph nodes All/Imm: Denies: acute wheezing Medications/Allergies Home Medications Medication Instructions Recorded Confirmed Last Taken Type ciprofloxacin HCl 500 mg tablet 500 mg PO BID #14 tabs 07/13/22 07/15/22 1 Day Ago Rx (Cipro) ~07/14/22 naproxen 500 mg tablet (Naprosyn) 500 mg PO BID PRN pain #20 tabs 07/13/22 07/15/22 1 Day Ago Rx ~07/14/22 Allergies Allergy/AdvReac Type Severity Reaction Status Date / Time No Known Allergies Allergy Verified 01/23/22 10:54 Current Medications Generic Name Dose Route Start Last Admin Trade Name Freq PRN Reason Stop Dose Admin Heparin Sodium (Porcine) 5,000 unit 07/14/22 21:00 07/15/22 09:52 Heparin 5,000 Unit/Ml Inj 1 Ml SUBCUT Not Given Q12H RYAN Sodium Chloride 1,000 mls @ 75 mls/hr 07/14/22 20:48 07/15/22 11:28 Sodium Chloride 0.9% IV 75 mls/hr .[id number] RYAN Administration Piperacillin Sod/Tazobactam 50 mls @ 12.5 mls/hr 07/14/22 23:00 07/15/22 10:39 Sod 3.375 gm/ Sodium Chloride IV Infused Q8H RYAN Infusion Protocol Vancomycin/PEG/NADA/Lysine/Water 1,250 mg in 250 mls @ 250 mls/hr 07/14/22 22:00 07/15/22 12:31 Vancocin IV Infused Q12H RYAN Infusion Morphine Sulfate 15 mg 07/14/22 20:48 07/15/22 10:45 Morphine Ir 15 Mg Tablet PO 15 mg Q6H PRN Administration pAIN Nicotine 1 patch 07/15/22 09:00 07/15/22 09:51 Nicotine 7 Mg Patch TRANSDERMA 1 patch [id number] RYAN Administration Senna/Docusate Sodium 1 tab 07/15/22 09:00 07/15/22 09:52 Sennosides-Docusate Tablet PO Not Given DAILY RYAN PFSH Acute PFSH: Medical History Aftercare following surgery of the genitourinary system Hepatitis C History of illicit drug use Sober date 2015 Nausea and vomiting No pertinent past medical history neghx: htn,dm,thyroid,dvt/pe PCP: None TMJ pain dysfunction syndrome Viral syndrome Surgical History H/O tubal ligation 05/24/2021- PP bilateral tubal ligation performed by Dr. Reyna at [facility] Hx of dilation and curettage (~2014) Family History Father Diabetes Clotting disorder Hypertension Grandmother Diabetes paternal Family/Other Thyroid condition maternal aunt Sister Thyroid condition Ovarian cancer diagnosis age unknown Denies family history of Colon cancer Heart disease Hyperlipidemia Breast cancer Uterine cancer Stroke Social History Smoking and tobacco status: current every day smoker cigarettes Packs smoked per day: 0.25 Alcohol intake: former Year of sobriety/quit date alcohol: 2015 Other details last substance use: hitsory of methamphetamines, marijuana and opiate abuse Female Reproductive History: Date of last menstrual period: 07/14/22 Vitals/I&O/Wt Last Vital Signs Temp 97.5 F L 07/15/22 07:49 Pulse 84 07/15/22 07:49 Resp 18 07/15/22 10:45 BP 100/64 07/15/22 07:49 Pulse Ox 97 07/15/22 07:49 O2 Del Method 07/15/22 07:49 07/14/22 07/15/22 07/15/22 22:59 06:59 14:59 Intake Total 480 / 480 600 / 1080 1574.167 / 1574.167 Output Total 1450 / 1450 750 / 750 Balance 480 / 480 -850 / -370 824.167 / 824.167 Weight last 48 hrs Weight 139 lb Physical Exam Const: COMMON NORMALS: alert and well nourished GENERAL APPEARANCE: well kempt and well developed ORIENTATION/CONSCIOUSNESS: not confused HENMT: COMMON NORMALS: normocephalic HEAD & SCALP: normal to inspection and normocephalic Eye: COMMON NORMALS: conjunctivae normal and no scleral icterus CONJUNCTIVA: Yes conjunctivae normal Neck/C-Spine: GENERAL: Yes normal visual inspection Resp: COMMON NORMALS: normal respiratory effort EFFORT & INSPECTION: Yes able to speak in complete sentences, No labored and No Actively coughing Cardio: COMMON NORMALS: regular rate and regular rhythm RATE: regular rate RHYTHM: regular rhythm GI: OTHER: Abdomen is soft without masses but she is exquisitely tender in right upper quadrant and right CVA area. I could not detect any swelling but she says she feels that way. No left CVA tenderness. No significant suprapubic discomfort. : OTHER: Bladder nondistended Extremity: COMMON NORMALS: no clubbing, cyanosis or edema OTHER: Her right hand does feel slightly cooler than the left. No cyanosis. Neuro: COMMON NORMALS: no focal motor deficits SENSORIUM/ORIENTATION: Yes alert Psych: COMMON NORMALS: mental status grossly normal APPEARANCE: Yes grossly normal and Yes well kempt ATTITUDE: Yes engaged Skin: COMMON NORMALS: no rashes or lesions noted and no jaundice GENERAL SKIN EXAM: no rashes or lesions noted Data 07/15/22 04:42 07/15/22 09:38 Micro: Microbiology 07/14/22 15:50 Blood Culture - Preliminary Blood SPECIMEN COLLECTED 07/14/22 15:42 Blood Culture - Preliminary Blood SPECIMEN COLLECTED A&P Assessment and plan (1) Pyelonephritis: Findings of either early abscess or acute nonsuppurative pyelonephritis on CT scan yesterday which was dramatically changed from day before. Clinically she is doing better on Rocephin. White count is improved. Symptoms better. Still feeling pretty lousy though (2) History of recurrent UTI (urinary tract infection): Plan Continue close observation. No indication for drain now. If her clinical situation gets worse she will need a repeat imaging to look for evidence of full-blown abscess or perirenal abscess. Would not typically drain unless it is extrarenal. Consult Attestations Medical Necessity Statement: See attending Coding Level of Care Code Acute Administrative Nursing Supervisor for Chg Fwd Diagnoses Pyelonephritis N12 History of recurrent UTI (urinary tract infection) Z87.440 Time Spent (min) 55 Comment >50% FTF counseling interview
[2022-07-16] VITALS: BP 96/66; PULSE 82; RESP 18; TEMP 37.5; O2SAT 99
[2022-07-16] MEDS: sodium chloride 0.9% 1,000 ML 75 ML IV ×2 (01:40→14:23)
[2022-07-16 04:00] VITALS: BP 96/60; PULSE 75; RESP 17; TEMP 37.1; O2SAT 98
[2022-07-16] MEDS: piperacillin-tazobactam 3.375 GM in sodium chloride 0.9% (plus) 50 ML IV ×3 (06:37→23:37)
[2022-07-16 07:44] VITALS: BP 101/66; PULSE 78; RESP 18; TEMP 36.6; O2SAT 96
--- NOTE | 2022-07-16 07:47 | PM.PN ---
Subjective Subjective: Urology follow-up: She feels better today. Still having some right flank and right upper quadrant pain No fever. No blood work has been drawn yet today. She is hungry. Labs reviewed. Toxicology screen yesterday showed positive for amphetamines. She denies any drug abuse in 6 years. Vitals/I&O/Wt Last Vital Signs Temp 97.9 F 07/16/22 07:44 Pulse 78 07/16/22 07:44 Resp 18 07/16/22 07:44 BP 101/66 07/16/22 07:44 Pulse Ox 96 07/16/22 07:44 O2 Del Method 07/16/22 07:44 07/15/22 07/16/22 07/16/22 22:59 06:59 14:59 Intake Total 1630 / 3204.167 2100 / 5304.167 Output Total 1600 / 2800 1450 / 4250 Balance 30 / 404.167 650 / 1054.167 Weight last 48 hrs Weight 139 lb Physical Exam Const: COMMON NORMALS: alert and well nourished GENERAL APPEARANCE: well kempt and well developed ORIENTATION/CONSCIOUSNESS: not confused Resp: COMMON NORMALS: normal respiratory effort EFFORT & INSPECTION: Yes able to speak in complete sentences, No labored and No Actively coughing GI: OTHER: lock tender chief operator 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 No palpable mass. : OTHER: Bladder nondistended Neuro: COMMON NORMALS: no focal motor deficits SENSORIUM/ORIENTATION: Yes alert Psych: COMMON NORMALS: mental status grossly normal APPEARANCE: Yes grossly normal and Yes well kempt ATTITUDE: Yes engaged Data 07/15/22 04:42 07/15/22 09:38 Micro: Microbiology 07/14/22 15:50 Blood Culture - Preliminary Blood NEGATIVE TO DATE 07/14/22 15:42 Blood Culture - Preliminary Blood NEGATIVE TO DATE A&P Assessment and plan (1) Pyelonephritis: Findings of either early abscess or acute nonsuppurative pyelonephritis on CT scan yesterday which was dramatically changed from day before. Seems to be responding well to Rocephin. Today feels less discomfort than she did yesterday. White count showed a dramatic improvement as of yesterday. No labs yet available. (2) History of recurrent UTI (urinary tract infection): Plan No change in plans. Continue IV antibiotics and close observation. Attestations Medical Necessity Statement*: See attending Coding Level of Care Code Acute Guide Dog Mobility Instructor for Chg Fwd Diagnoses Pyelonephritis N12 History of recurrent UTI (urinary tract infection) Z87.742
[2022-07-16] MEDS: nicotine 7 mg Patch 1 PATCH TRANSDERMA (09:32)
--- NOTE | 2022-07-16 10:39 | P.PN_ITS ---
Subjective Subjective: Pain is improving but decorative cutting machine tender in the left CVA angle today. Denies any dysuria. White count was improving yesterday. She has been afebrile. Gram-negative rods on prelim urine culture, pending identification and susceptibilities. Medications: Reviewed: Yes Vitals/I&O/Wt Last Vital Signs Temp 97.9 F 07/16/22 07:44 Pulse 78 07/16/22 07:44 Resp 18 07/16/22 07:44 BP 101/66 07/16/22 07:44 Pulse Ox 96 07/16/22 07:44 O2 Del Method 07/16/22 07:44 07/15/22 07/16/22 07/16/22 22:59 06:59 14:59 Intake Total 1630 / 3204.167 2100 / 5304.167 120 / 120 Output Total 1600 / 2800 1450 / 4250 Balance 30 / 404.167 650 / 1054.167 120 / 120 Weight last 48 hrs Weight 63.049 kg Physical Exam Narrative: General: No acute distress, AO x3 HEENT: PERRLA, pupils bilaterally equal and reactive, pallors not present Chest: Normal vesicular breath sounds, no added sounds, equal good air entry bilaterally CVS: S1-S2 regular, no murmurs, no tachycardia, no gallops, no rubs Abdomen: Soft, nontender, no organomegaly, bowel sounds present Neuro: No focal deficits, no facial deformity, AO x3, power 5/5 in all limbs Data 07/15/22 04:42 07/15/22 09:38 Micro: Microbiology 07/14/22 15:50 Blood Culture - Preliminary Blood NEGATIVE TO DATE 07/14/22 15:42 Blood Culture - Preliminary Blood NEGATIVE TO DATE A&P Assessment and plan (1) Pyelonephritis: (2) Parenchymal disease of kidney: (3) Nausea and vomiting: Plan Pyelonephritis Focal parenchymal lesions with vascular calcification,suspected early abscess Hepatitis C untreated, outpatient follow up for the same Splenomegaly Smokes 5 cigarettes a day Urine cx currently with GNR, awaiting identification Clinically improving on ceftriaxone currently Will await urine cx to decide further course of action, will need minimum 14 days of abx followed by serial imaging to ensure resolution Drug screen positive for methamphetamines, denies IVDU past 6 years negative blood cultures thus far Obtain echo Full code Attestations Medical Necessity Statement*: pending final treatment decisions based on urine cx Coding Level of Care Code Acute Medical Administrative Technician for Chg Fwd Diagnoses Pyelonephritis N12 Parenchymal disease of kidney N28.9 Nausea and vomiting R11.2
[2022-07-16 10:57] LABS: Vancomycin Trough 4.7 ug/mL (10-15)
[2022-07-16 11:11] VITALS: BP 92/56; PULSE 84; RESP 18; TEMP 36.6; O2SAT 97
[2022-07-16 15:59] VITALS: BP 99/66; PULSE 83; RESP 18; TEMP 36.9; O2SAT 99
[2022-07-16] MEDS: acetaminophen 500 mg Tablet PO (17:41)
[2022-07-16 20:00] VITALS: BP 90/54; PULSE 77; RESP 19; TEMP 36.9; O2SAT 99
[2022-07-17] VITALS: BP 158/73; PULSE 64; RESP 18; TEMP 36.9; O2SAT 90
[2022-07-17 04:00] VITALS: BP 133/73; PULSE 71; RESP 16; TEMP 36.2; O2SAT 99
[2022-07-17 04:03] VITALS: BP 99/67; PULSE 67
[2022-07-17] MEDS: acetaminophen 500 mg Tablet PO (04:13)
[2022-07-17] MEDS: sodium chloride 0.9% 1,000 ML 75 ML IV (04:17)
[2022-07-17 04:56] LABS: Basophils % 0.5 %; Eosinophils # 0.1 10^3/uL (0.0-0.8); Eosinophils % 1.5 %; Hematocrit 38.2 % (37.0-47.0); Hemoglobin 12.5 g/dL (11.5-15.3); Lymphocytes # 1.6 10^3/uL (0.8-4.8); Lymphocytes % 23.7 %; Mean Corpuscular HGB Conc 32.7 g/dL (30.0-36.0); Mean Corpuscular Hemoglobin 29.8 pg (28.0-34.0); Mean Corpuscular Volume 91.2 fl (81-99); Monocytes # 0.7 10^3/uL (0.2-0.9); Monocytes % 10.9 %; Neutrophils # 4.12 10^3/uL (1.8-7.7); Neutrophils % 63.1 %; Nucleated Red Blood Cells % 0 %; Platelet Count 246 10^3/cmm (130-400); Red Blood Count 4.19 10^6/uL (4.1-5.3); Red Cell Distribution Width 11.9 % (12.1-15.1); White Blood Count 6.5 10^3/uL (4.0-10.0)
[2022-07-17 05:27] LABS: Alanine Aminotransferase 58 U/L (0-33); Albumin Level 3.2 g/dL (3.5-5.2); Alkaline Phosphatase 41 U/L (35-105); Anion Gap 12.9 (5-19); Aspartate Amino Transferase 33 U/L (0-32); Blood Urea Nitrogen 8 mg/dL (6-20); Calcium 8.8 mg/dL (8.5-10.5); Carbon Dioxide 25 mmol/L (22-29); Chloride 107 mmol/L (98-107); Globulin 3.1 g/dL (1.3-4.6); Glomerular Filtration Rate 118.2 mL/min (90-130); Glucose 107 mg/dL (65-115); Osmolality Calculated 291 mOsm/kg (285-295); Potassium 3.9 mmol/L (3.5-5.1); Sodium 141 mmol/L (136-145); Total Bilirubin 0.3 mg/dL (0.15-1.2); Total Protein 6.3 g/dL (6.6-8.7)
[2022-07-17] MEDS: piperacillin-tazobactam 3.375 GM in sodium chloride 0.9% (plus) 50 ML IV (06:37)
[2022-07-17 07:52] VITALS: BP 95/58; PULSE 56; RESP 16; TEMP 36.5; O2SAT 98
--- NOTE | 2022-07-17 08:23 | PM.PN ---
Subjective Subjective: Urology follow-up Symptomatically: She is much better. Still sore but huge improvement. She is remained afebrile. Her vital signs are stable. White count has continued to decrease. Urine culture from the 07/13/2022: Pansensitive E. coli 60-70,000 colonies per cc. Vitals/I&O/Wt Last Vital Signs Temp 97.7 F 07/17/22 07:52 Pulse 56 L 07/17/22 07:52 Resp 16 07/17/22 07:52 BP 95/58 07/17/22 07:52 Pulse Ox 98 07/17/22 07:52 O2 Del Method 07/17/22 07:52 07/16/22 07/17/22 07/17/22 22:59 06:59 14:59 Intake Total 290 / 1890 1850 / 3740 Output Total 800 / 3100 2100 / 5200 Balance -510 / -1210 -250 / -1460 Physical Exam Narrative: Looks much better today. Moving around freely. Still having some pain but dramatic improvement. Labored respiration. No wheezes Abdomen soft Remedies demonstrate good range of motion. No status clear. Oriented and alert No acute distress Data 07/17/22 04:20 07/17/22 04:20 A&P Assessment and plan (1) Pyelonephritis: Improved. Pansensitive E. coli noted on culture at admission. We will continue IV antibiotics does need repeat imaging at some point on outpatient basis Can be discharged once hospitalist/Dr. Garcia feels comfortable. (2) History of recurrent UTI (urinary tract infection): Plan No change in plans. Continue IV antibiotics and close observation. Attestations Medical Necessity Statement*: See attending Coding Level of Care Code Acute Film Cleaner for Chg Fwd Diagnoses Pyelonephritis N12 History of recurrent UTI (urinary tract infection) Z87.440
--- NOTE | 2022-07-17 10:54 | PM.DCS ---
Discharge Providers Date of Admission: 07/14/22 19:14 Date of Discharge: July 17, 2022 Attending Provider at Admission: Evie Garcia MD Attending Provider at Discharge: Nena Retana MD Diagnoses at Discharge Discharge Diagnosis (1) Pyelonephritis: Status: Acute Permanent problem details: CT scan findings worrisome for development of acute nonsuppurative pyelonephritis versus early abscess. June 2022 (2) History of recurrent UTI (urinary tract infection): Status: Acute Reason for Visit Reason for Visit: kidney infection Brief History: As per Dr. Jose Rasmussen Masoud is a 31 year old female who presented to the ER on vent for right-sided flank pain she was discharged with ciprofloxacin for UTI.? She is returning back for worsening of her pain, fever, chills.? Patient stating that she has history of IV drug abuse but she has been clean for last 6 years, she smokes 5 cigarettes a day does not drink alcohol no marijuana abuse.? She has been noticing worsening of her pain in her right flank, she has not experienced any emesis however she is endorsing nausea.? She is also experiencing urinary frequency with mild dysuria towards the end. In the ER CAT scan is showing hypodense lesion of her renal parenchyma with vascular calcification no active signs of thrombus, decision was made to admit her obtain blood cultures and do work-up for her incidental finding of renal lesions Patient is not endorsing palpitations, chest pain, blurry vision but she is stating that her hand seems more swollen Hospital Course Hospital Course Pyelonephritis Focal parenchymal lesions with vascular calcification,suspected early abscess Hepatitis C untreated, outpatient follow up for the same Splenomegaly Smokes 5 cigarettes a day Urine cx currently with GNR sensitive to ciprofloxacin. Clinically improved on ceftriaxone. Echo done as well did not show any endocarditis. BCx negative. Drug screen positive for methamphetamines, denies IVDU past 6 years Pt to complete total 14 days of antibiotics and have repeat CT imaging to ensure complete resolution. Pt seen by urology during hospital stay as well and they agreed with above plan. DC home in stable condition. Remained afebrile 48 hours prior to discharge. Physical Exam Narrative: General: No acute distress, AO x3 HEENT: PERRLA, pupils bilaterally equal and reactive, pallors not present Chest: Normal vesicular breath sounds, no added sounds, equal good air entry bilaterally CVS: S1-S2 regular, no murmurs, no tachycardia, no gallops, no rubs Abdomen: Soft, nontender, no organomegaly, bowel sounds present Neuro: No focal deficits, no facial deformity, AO x3, power 5/5 in all limbs Discharge Data Studies Completed and Pending Completed Studies During Hospitalization Category Date Time Status CT abdomen pelvis w con* [id number] Stat Cat Scan 07/14/22 15:51 Completed CV. echo complete* [id number] Routine Ultrasound 07/15/22 06:00 Completed Pending at discharge Category Date Time Status Blood Culture Stat Lab 07/14/22 15:50 Results Hepatitis C RNA Viral Load Qnt AM LABS Lab 07/17/22 04:20 Received Radiology Impressions Abdomen/Pelvis CT 07/14/22 15:51 IMPRESSION: 1. Ill-defined right renal hypodensity as described, probably focal pyelonephritis, appearing more discrete and more hypodense than 1 day earlier. Clinical correlation follow-up should be obtained. Follow-up imaging may also be considered, to exclude complication such as abscess and to exclude neoplasm. 2. Minimal splenomegaly. 3. Trace free pelvic fluid and other nonacute findings as above. Laboratory Results WBC 6.5 10^3/uL (4.0-10.0) 07/17/22 04:20 RBC 4.19 10^6/uL (4.1-5.3) 07/17/22 04:20 Hgb 12.5 g/dL (11.5-15.3) 07/17/22 04:20 Hct 38.2 % (37.0-47.0) 07/17/22 04:20 MCV 91.2 fl (81-99) 07/17/22 04:20 MCH 29.8 pg (28.0-34.0) 07/17/22 04:20 MCHC 32.7 g/dL (30.0-36.0) 07/17/22 04:20 RDW 11.9 % (12.1-15.1) L 07/17/22 04:20 Plt Count 246 10^3/cmm (130-400) 07/17/22 04:20 MPV 10.0 fL (7.4-10.4) 07/17/22 04:20 Neut % (Auto) 63.1 % 07/17/22 04:20 Lymph % (Auto) 23.7 % 07/17/22 04:20 [place] % (Auto) 10.9 % 07/17/22 04:20 Eos % (Auto) 1.5 % 07/17/22 04:20 Baso % (Auto) 0.5 % 07/17/22 04:20 Neut # (Auto) 4.12 10^3/uL (1.8-7.7) 07/17/22 04:20 Lymph # (Auto) 1.6 10^3/uL (0.8-4.8) 07/17/22 04:20 [place] # (Auto) 0.7 10^3/uL (0.2-0.9) 07/17/22 04:20 Eos # (Auto) 0.1 10^3/uL (0.0-0.8) 07/17/22 04:20 Baso # (Auto) 0.0 10^3/uL (0.0-0.1) 07/17/22 04:20 Nucleated RBC % (auto) 0 % 07/17/22 04:20 Nucleated RBCs # 0.0 /100WBC 07/17/22 04:20 ESR 26 mm/hr (0-15) H 07/14/22 15:42 D-Dimer 0.74 ug/mIFEU (0-0.59) H 07/14/22 15:42 Sodium 141 mmol/L (136-145) 07/17/22 04:20 Potassium 3.9 mmol/L (3.5-5.1) 07/17/22 04:20 Chloride 107 mmol/L (98-107) 07/17/22 04:20 Carbon Dioxide 25 mmol/L (22-29) 07/17/22 04:20 Anion Gap 12.9 (5-19) 07/17/22 04:20 BUN 8 mg/dL (6-20) 07/17/22 04:20 Creatinine 0.6 mg/dL (0.5-0.9) 07/17/22 04:20 GFR Calculation 118.2 mL/min (90-130) 07/17/22 04:20 Glucose 107 mg/dL (65-115) 07/17/22 04:20 Calculated Osmolality 291 mOsm/kg (285-295) 07/17/22 04:20 Lactic Acid 1.2 mmol/L (0.5-2.2) 07/14/22 15:42 Calcium 8.8 mg/dL (8.5-10.5) 07/17/22 04:20 Phosphorus 2.5 mg/dL (2.5-4.5) 07/15/22 04:42 Magnesium 1.5 mg/dL (1.7-2.3) L 07/15/22 04:42 Total Bilirubin 0.3 mg/dL (0.15-1.2) 07/17/22 04:20 AST 33 U/L (0-32) H 07/17/22 04:20 ALT 58 U/L (0-33) H 07/17/22 04:20 Alkaline Phosphatase 41 U/L (35-105) 07/17/22 04:20 C-Reactive Protein 118.2 mg/L (0.0-4.9) H 07/15/22 04:42 Total Protein 6.3 g/dL (6.6-8.7) L 07/17/22 04:20 Albumin 3.2 g/dL (3.5-5.2) L 07/17/22 04:20 Globulin 3.1 g/dL (1.3-4.6) 07/17/22 04:20 Lipase 28 U/L (13-60) 07/14/22 15:42 Vitamin B12 530 pg/mL (232-1245) 07/14/22 15:42 Procalcitonin 0.42 ng/mL (0-0.5) 07/14/22 15:42 TSH 1.78 uIU/mL (0.27-4.20) 07/14/22 15:42 HCG, Qual Negative (Negative) 07/14/22 16:06 Urine Color Yellow (Yellow) 07/14/22 16:06 Urine Appearance Clear (CLEAR) 07/14/22 16:06 Urine pH 8 (5-7) H 07/14/22 16:06 Ur Specific [place] 1.005 (1.005-1.030) 07/14/22 16:06 Urine Protein Trace (Negative) 07/14/22 16:06 Urine Glucose (UA) Norm (Normal) 07/14/22 16:06 Urine Ketones Negative (Negative) 07/14/22 16:06 Urine Blood Trace (Negative) H 07/14/22 16:06 Urine Nitrate Negative (Negative) 07/14/22 16:06 Urine Bilirubin Neg (Negative) 07/14/22 16:06 Urine Urobilinogen 4 mg/dL (Negative) H 07/14/22 16:06 Ur Leukocyte Esterase Negative (Negative) 07/14/22 16:06 Urine RBC Rare /hpf (0-2) 07/14/22 16:06 Urine WBC Rare /hpf (0-5) 07/14/22 16:06 Ur Squamous Epith Cells Rare /hpf (0-5) 07/14/22 16:06 Amorphous Sediment Not Reportable 07/14/22 16:06 Urine Bacteria None /hpf (NONE) 07/14/22 16:06 Vancomycin Trough 4.7 ug/mL (10-15) L 07/16/22 09:08 Urine Opiates Screen Negative ng/mL (Negative) 07/15/22 03:05 Ur Barbiturates Screen Negative ng/mL (Negative) 07/15/22 03:05 Ur Phencyclidine Scrn Negative ng/mL (Negative) 07/15/22 03:05 Ur Amphetamines Screen Positive ng/mL (Negative) H 07/15/22 03:05 U Benzodiazepines Scrn Negative ng/mL (Negative) 07/15/22 03:05 Urine Cocaine Screen Negative ng/mL (Negative) 07/15/22 03:05 U Marijuana (THC) Screen Negative ng/mL (Negative) 07/15/22 03:05 Vitals Last Vital Signs Temp 97.7 F 07/17/22 07:52 Pulse 56 L 07/17/22 07:52 Resp 16 07/17/22 07:52 BP 95/58 07/17/22 07:52 Pulse Ox 98 07/17/22 07:52 O2 Del Method 07/17/22 07:52 Discharge Plan Discharge Patient Disposition: Home Condition: Stable Prescriptions: Continued Cipro 500 mg tablet 500 mg PO BID 12 Days Qty: 14 0RF Discontinued naproxen [Naprosyn] 500 mg tablet 500 mg PO BID PRN (Reason: pain) Qty: 20 0RF Discharge Orders: Discharge Order (Routine); Ordered 07/17/22 Ordered By: Nena Retana Referrals: Richard Sanon MD [Physician] - 07/21/22 10:00 am (You have a new patient appointment with Dr. Sanon on July 21, 2022 at 10:00 am. If you have any questions or need to reschedule please contact them at [phone].) Patient Instructions: Ciprofloxacin (By mouth), Urinary Tract Infection in Women (GEN), Opioid Safety Activity Restrictions/Additional Instructions: You already have 5 days of ciprofloxacin with you today. I have ordered another 7 days supply for you. You will have to take medicine for additional 12 days to equal 14 in total. Please follow up with primary care doctor as outpatient within 4-7 days of discharge. Follow up with repeat CT scan to re-evaluate your kidney infection in 2 weeks. [facility] SCHEDULING WILL CALL WITH APPOINTMENT FOR CT [phone] Discharge Attestations Time Spent in Discharge Care*: less than 30 min Quality Metrics Clinical Quality Measures [ No reported AMI, CVA or VTE this stay] Coding Level of Care Code Acute Chg FW DC note Diagnoses Pyelonephritis N12 History of recurrent UTI (urinary tract infection) Z87.440
--- NOTE | 2022-07-17 11:56 | PC.NURSE ---
1150 discharge instructions given to patient, who voiced understanding. 1153 patient discharged to home with family patient ambulated with family to pharmacy and private car patient in stable condition.
[2022-07-17 11:58] VITALS: BP 95/58; PULSE 56; RESP 16; TEMP 36.5; O2SAT 98
[2022-07-19 22:28] LABS: HEP C RNA Viral Load Quant 496000 IU/mL (NOT DETECTED)
== END 2022-07-17 12:01 | disposition home or self-care (01) | DRG 690 ==
LOC: ER 18:25 → MEDSURG 19:51
PROVIDERS: Internal Medicine; Physician Assistant; Admitting Provider Student in an Organized Health Care Education/Training Program; Emergency Provider Emergency Medicine; Visit Provider Internal Medicine
DX: N12 Tubulo-interstitial nephritis, not specified as acute or chronic (principal); N28.89 Other specified disorders of kidney and ureter; N15.1 Renal and perinephric abscess; B96.20 Unspecified Escherichia coli [E. coli] as the cause of diseases classified elsewhere; B18.2 Chronic viral hepatitis C; F15.90 Other stimulant use, unspecified, uncomplicated; F17.210 Nicotine dependence, cigarettes, uncomplicated; R11.0 Nausea; R16.1 Splenomegaly, not elsewhere classified; Z87.440 Personal history of urinary (tract) infections
CPT/HCPCS: 36415; 74177; 80048; 80053; 80202; 80306; 81001; 81025; 82607; 83605; 83690; 83735; 84100; 84145; 84295; 84443; 85025; 85378; 85651; 86140; 87040; 87522; 93306; 96365; 96367; 96375; 99285; J0131; J0696; J1885; J2543; J3370; J3475; J7030; Q9967

== ENCOUNTER 2022-08-01 11:15 | Outpatient (CLI) | payer OTHER, SELFPAY ==
[2022-08-01] MEDS: iohexol 350 mg/mL 500 mL Btl (per mL) IV (12:24)
--- NOTE | 2022-08-01 12:30 | CTR_ITS ---
PROCEDURE INFORMATION: Exam: CT Abdomen And Pelvis With Contrast Exam date and time: 08/01/2022 11:57 AM Age: 31 years old Clinical indication: Condition or disease; Kidney or ureter condition; Other: RT hydronephrosis; Prior surgery; Surgery type: Tubal; Additional info: Follow up pyelonephritis TECHNIQUE: Imaging protocol: Computed tomography of the abdomen and pelvis with contrast. Radiation optimization: All CT scans at this facility use at least one of these dose optimization techniques: automated exposure control; mA and/or kV adjustment per patient size (includes targeted exams where dose is matched to clinical indication); or iterative reconstruction. Contrast material: OMNI 350; Contrast volume: 95 ml; Contrast route: INTRAVENOUS (IV); COMPARISON: CT abdomen pelvis w con* [id number] 07/14/2022 3:58 PM RADIATION DOSE METRICS: Total DLP (mGy-cm): 828.73 FINDINGS: Liver: Normal. No mass. Gallbladder and bile ducts: Contracted gallbladder. No calcified stones. No ductal dilation. Pancreas: Normal. No ductal dilation. Spleen: Normal. No splenomegaly. Adrenal glands: Normal. No mass. Kidneys and ureters: Residual area of wedge-shaped cortical hypoenhancement noted within the right kidney, but overall improved from recent comparison. No hydronephrosis. Stomach and bowel: Unremarkable. No obstruction. No mucosal thickening. Appendix: No evidence of appendicitis. Intraperitoneal space: Unremarkable. No free air. No significant fluid collection. Vasculature: Unremarkable. No abdominal aortic aneurysm. Lymph nodes: Unremarkable. No enlarged lymph nodes. Urinary bladder: Unremarkable as visualized. Reproductive: Unremarkable as visualized. Bones/joints: No acute fracture. Soft tissues: Unremarkable. CT/CT abdomen pelvis w con* [id number] IMPRESSION: Residual area of wedge-shaped cortical hypoenhancement in the right kidney corresponding to pyelonephritis, but overall improved from recent comparison.
== END 2022-08-01 11:16 | disposition home or self-care (01) ==
LOC: RAD 11:19
PROVIDERS: Visit Provider Internal Medicine
DX: N12 Tubulo-interstitial nephritis, not specified as acute or chronic (principal)
CPT/HCPCS: 74177; Q9967

== ENCOUNTER 2022-11-05 10:29 | Emergency (ER) | payer SELFPAY ==
[2022-11-05 10:34] VITALS: BP 93/59; PULSE 127; RESP 20; TEMP 36.7; O2SAT 100
--- NOTE | 2022-11-05 10:40 | W.ED.SKABFB ---
HPI - Skin/Abscess/Foreign Bdy General: Chief complaint: Skin/Abscess/Foreign Body Stated complaint: Spot on leg is infected. Time Seen by Provider: 11/05/22 10:39 History of Present Illness: Ms. Meredith is a 31-year-old lady without frequent skin concerns presenting to the emergency department due to leg pain. She reports onset of symptoms yesterday with no known specific provoking factor. Initial mild redness of the myrick which is since spread. She endorses proximal spread of pain beyond the margins of the erythema. Worse with ambulation. Reports generalized malaise however no definitive signs of systemic illness. No other specific changes in health, exacerbating, or alleviating factors identified. Onset (ago): day(s) Location: LLE Severity: severe Quality: aching Pain Consistency: constant Relieving factors: none Exacerbating factors: palpation and movement Associated symptoms: Reports fever(s) Review of Systems General: Reports: 10 or more systems reviewed and unremarkable except in HPI and below Const: Reports: fever(s) PFS ED PFSH: Medical History Aftercare following surgery of the genitourinary system Hepatitis C History of illicit drug use Sober date 2015 Nausea and vomiting No pertinent past medical history neghx: htn,dm,thyroid,dvt/pe PCP: None TMJ pain dysfunction syndrome Viral syndrome Surgical History H/O tubal ligation 05/24/2021- PP bilateral tubal ligation performed by Dr. Reyna at [facility] Hx of dilation and curettage (~2014) Family History Father Diabetes Clotting disorder Hypertension Grandmother Diabetes paternal Family/Other Thyroid condition maternal aunt Sister Thyroid condition Ovarian cancer diagnosis age unknown Denies family history of Colon cancer Heart disease Hyperlipidemia Breast cancer Uterine cancer Stroke Social History Smoking and tobacco status: current every day smoker cigarettes Packs smoked per day: 0.25 Alcohol intake: former Year of sobriety/quit date alcohol: 2016 Other details last substance use: hitsory of methamphetamines, marijuana and opiate abuse Physical Exam Const: COMMON NORMALS: alert GENERAL APPEARANCE: cooperative and well developed HENMT: COMMON NORMALS: normocephalic and atraumatic HEAD & SCALP: normocephalic and atraumatic Eye: COMMON NORMALS: conjunctivae normal CONJUNCTIVA: Yes conjunctivae normal SCLERA: sclerae normal Neck/C-Spine: COMMON NORMALS: supple GENERAL: Yes trachea midline Resp: COMMON NORMALS: clear to auscultation bilaterally EFFORT & INSPECTION: Yes able to speak in complete sentences AUSCULTATION: clear to auscultation bilaterally Cardio: COMMON NORMALS: regular rate and regular rhythm RATE: regular rate RHYTHM: regular rhythm GI: COMMON NORMALS: Soft to palpation PALPATION: Yes Soft to palpation and No Tenderness to palpation present (GI) Extremity: NARRATIVE EXTREMITY EXAM: Left lower extremity anterior mid myrick area of erythema with central area of induration, healing lesion on the posterior left leg. Generalized tenderness to palpation. Distal CMS intact. Compartments feel soft. GENERAL: Yes normal exam except as noted and No edema Neuro: COMMON NORMALS: moves all extremities SENSORIUM/ORIENTATION: Yes alert and No Orientation impaired Psych: COMMON NORMALS: mental status grossly normal and Normal thought process present THOUGHT PROCESS: Normal thought process present Course Vital Signs: Vital signs: Vital Signs Temperature 98.0 F 11/05/22 10:34 Pulse Rate 90 11/05/22 12:39 Respiratory Rate 22 H 11/05/22 11:17 Blood Pressure 98/54 11/05/22 12:39 Pulse Oximetry 100 11/05/22 12:39 Oxygen Delivery Me thod Room Air 11/05/22 10:34 MDM - Skin/Abscess/Foreign Bdy Medicial Decision Making 31-year-old lady presenting with extremity concern. Exam as above. Patient is nontoxic. Labs notable for leukocytosis, normal hemoglobin. Metabolic panel with mild dehydration. No underlying bony abnormality identified on x-ray. No foreign bodies. Patient treated with analgesia, fluids, antibiotics and improved on reassessment. Most of etiology patient symptoms is cellulitis. The results of ED evaluation were discussed with the patient including prescriptions and/or symptomatic cares (if applicable) including appropriate and responsible use, followup plan, and return precautions. The patient verbalized understanding and felt safe for discharge. Medical Records I reviewed the patient's medical records. Lab Data I reviewed the patient's lab results. 11/05/22 11:20 11/05/22 11:20 Radiology Impressions Tibia/Fibula X-Ray 11/05/22 10:58 IMPRESSION: 1. Mild soft tissue swelling along the anterior aspect of the lower leg. 2. No acute fracture is seen. Laboratory Results WBC 13.3 10^3/uL (4.0-10.0) H 11/05/22 11:20 RBC 4.84 10^6/uL (4.1-5.3) 11/05/22 11:20 Hgb 14.2 g/dL (11.5-15.3) 11/05/22 11:20 Hct 43.7 % (37.0-47.0) 11/05/22 11:20 MCV 90.3 fl (81-99) 11/05/22 11:20 MCH 29.3 pg (28.0-34.0) 11/05/22 11:20 MCHC 32.5 g/dL (30.0-36.0) 11/05/22 11:20 RDW 11.9 % (12.1-15.1) L 11/05/22 11:20 Plt Count 281 10^3/cmm (130-400) 11/05/22 11:20 MPV 9.6 fL (7.4-10.4) 11/05/22 11:20 Neut % (Auto) 83.1 % 11/05/22 11:20 Lymph % (Auto) 11.3 % 11/05/22 11:20 [place] % (Auto) 4.2 % 11/05/22 11:20 Eos % (Auto) 0.8 % 11/05/22 11:20 Baso % (Auto) 0.4 % 11/05/22 11:20 Neut # (Auto) 11.03 10^3/uL (1.8-7.7) H 11/05/22 11:20 Lymph # (Auto) 1.5 10^3/uL (0.8-4.8) 11/05/22 11:20 [place] # (Auto) 0.6 10^3/uL (0.2-0.9) 11/05/22 11:20 Eos # (Auto) 0.1 10^3/uL (0.0-0.8) 11/05/22 11:20 Baso # (Auto) 0.1 10^3/uL (0.0-0.1) 11/05/22 11:20 Nucleated RBC % (auto) 0 % 11/05/22 11:20 Nucleated RBCs # 0.0 /100WBC 11/05/22 11:20 Sodium 131 mmol/L (136-145) L 11/05/22 11:20 Potassium 3.6 mmol/L (3.5-5.1) 11/05/22 11:20 Chloride 100 mmol/L (98-107) 11/05/22 11:20 Carbon Dioxide 24 mmol/L (22-29) 11/05/22 11:20 Anion Gap 10.6 (5-19) 11/05/22 11:20 BUN 8 mg/dL (6-20) 11/05/22 11:20 Creatinine 0.7 mg/dL (0.5-0.9) 11/05/22 11:20 GFR Calculation 98.9 mL/min (90-130) 11/05/22 11:20 Glucose 94 mg/dL (65-115) 11/05/22 11:20 Calculated Osmolality 270 mOsm/kg (285-295) L 11/05/22 11:20 Lactic Acid 1.6 mmol/L (0.5-2.2) 11/05/22 11:20 Calcium 8.7 mg/dL (8.5-10.5) 11/05/22 11:20 Total Bilirubin 0.8 mg/dL (0.15-1.2) 11/05/22 11:20 AST 27 U/L (0-32) 11/05/22 11:20 ALT 58 U/L (0-33) H 11/05/22 11:20 Alkaline Phosphatase 59 U/L (35-105) 11/05/22 11:20 Total Protein 6.6 g/dL (6.6-8.7) 11/05/22 11:20 Albumin 4.2 g/dL (3.5-5.2) 11/05/22 11:20 Globulin 2.4 g/dL (1.3-4.6) 11/05/22 11:20 Discharge Plan Discharge Patient Disposition: Home Clinical Impression: Cellulitis Condition: Stable Prescriptions: New ondansetron 4 mg tablet,disintegrating 4 mg PO Q8H PRN (Reason: nausea and vomiting) Qty: 15 0RF oxycodone 5 mg tablet 5 mg PO Q4H PRN (Reason: pain) Qty: 10 0RF Discharge Orders: Discharge ED (Routine); Ordered 11/05/22 Ordered By: Vladimir Marsh Discharge Diet: Usual diet Discharge Activity: Increase activity as tolerated Patient Instructions: Cellulitis (ED), Leg Pain (ED), Opioid Safety Activity Restrictions/Additional Instructions: Thank you for visiting the emergency department. You were seen and evaluated for leg pain and skin changes, the most likely cause of your symptoms is cellulitis. I would expect improvement in the next few days. I will prescribe antibiotics and oxycodone as well as antinausea medication, use oxycodone carefully as it is an opioid. Do not drive or operate machinery, do not perform tasks that could be dangerous if the medication affects your body. You may use [id number] medications such as acetaminophen and ibuprofen for pain however please do not exceed the daily recommended dosage as listed on the packaging and please keep in mind that many namebrand medications contain the same active ingredients. Please avoid these medications if previously instructed to do so by another physician due to other underlying medical condition. Return to the emergency department for uncontrolled symptoms or anything else that you are concerned about and feel needs emergency department evaluation. Coding Level of Care Code ED Media Relations Specialist for Eris Falk
--- NOTE | 2022-11-05 10:58 | XRR_ITS ---
PROCEDURE INFORMATION: Exam: XR Left Tibia and Fibula Exam date and time: 11/05/2022 11:05 AM Age: 31 years old Clinical indication: . Left lower leg pain. Pain, redness TECHNIQUE: Imaging protocol: Radiologic exam of the left tibia and fibula. Views: 2 views. COMPARISON: No relevant prior studies available. FINDINGS: Bones/joints: No fracture, dislocation or subluxation. No periosteal reaction or supsicious bone lesion. Soft tissues: Mild soft tissue swelling along the anterior aspect of the lower leg. Vasculature: Probable small phleboliths in the ventral subcutaneous tissues. XR/XR tibia fibula LT 2V [id number] IMPRESSION: 1. Mild soft tissue swelling along the anterior aspect of the lower leg. 2. No acute fracture is seen.
[2022-11-05 11:17] VITALS: RESP 22; O2SAT 99
[2022-11-05] MEDS: morphine 4 mg/mL SDV 1 mL IVP (11:17)
[2022-11-05] MEDS: ketorolac 30 mg/mL INJ 15 MG IVP (11:18)
[2022-11-05] MEDS: sodium chloride 0.9% 1,000 ML 999 ML IV (11:18)
[2022-11-05 11:39] LABS: Basophils # 0.1 10^3/uL (0.0-0.1); Basophils % 0.4 %; Eosinophils # 0.1 10^3/uL (0.0-0.8); Eosinophils % 0.8 %; Hematocrit 43.7 % (37.0-47.0); Hemoglobin 14.2 g/dL (11.5-15.3); Lymphocytes # 1.5 10^3/uL (0.8-4.8); Lymphocytes % 11.3 %; Mean Corpuscular HGB Conc 32.5 g/dL (30.0-36.0); Mean Corpuscular Hemoglobin 29.3 pg (28.0-34.0); Mean Corpuscular Volume 90.3 fl (81-99); Mean Platelet Volume 9.6 fL (7.4-10.4); Monocytes # 0.6 10^3/uL (0.2-0.9); Monocytes % 4.2 %; Neutrophils # 11.03 10^3/uL (1.8-7.7); Neutrophils % 83.1 %; Nucleated Red Blood Cells % 0 %; Platelet Count 281 10^3/cmm (130-400); Red Blood Count 4.84 10^6/uL (4.1-5.3); Red Cell Distribution Width 11.9 % (12.1-15.1); White Blood Count 13.3 10^3/uL (4.0-10.0)
[2022-11-05 11:50] LABS: Lactic Sepsis W/Reflex 1.6 mmol/L (0.5-2.2)
[2022-11-05 11:51] LABS: Alanine Aminotransferase 58 U/L (0-33); Albumin Level 4.2 g/dL (3.5-5.2); Alkaline Phosphatase 59 U/L (35-105); Anion Gap 10.6 (5-19); Aspartate Amino Transferase 27 U/L (0-32); Blood Urea Nitrogen 8 mg/dL (6-20); Calcium 8.7 mg/dL (8.5-10.5); Carbon Dioxide 24 mmol/L (22-29); Chloride 100 mmol/L (98-107); Globulin 2.4 g/dL (1.3-4.6); Glomerular Filtration Rate 98.9 mL/min (90-130); Glucose 94 mg/dL (65-115); Osmolality Calculated 270 mOsm/kg (285-295); Potassium 3.6 mmol/L (3.5-5.1); Sodium 131 mmol/L (136-145); Total Bilirubin 0.8 mg/dL (0.15-1.2); Total Protein 6.6 g/dL (6.6-8.7)
[2022-11-05] MEDS: cefTRIAXone 1,000 MG in sodium chloride 0.9% (plus) 50 ML 100 MG IV (12:00)
[2022-11-05 12:02] VITALS: BP 110/66; PULSE 77; O2SAT 100
[2022-11-05 12:39] VITALS: BP 98/54; PULSE 90; O2SAT 100
--- NOTE | 2022-11-09 15:10 | DCPLANNER ---
Addendum entered by Jackie Gallegos 11/17/22 08:58: Patient had a follow up appointment scheduled with Dr. Jamison - patient did not attend appointment. Original Note: corridor redevelopment manager called patient due to no primary care physician - patient stated that she would like help in getting established with a primary care physician. corridor redevelopment manager called [facility], spoke with Haleigh, gave clinic patients information. A follow up appointment was scheduled for October at 9:[address] Jamison. corridor redevelopment manager gave patient the appointment information.
== END 2022-11-05 12:40 | disposition home or self-care (01) ==
PROVIDERS: Emergency Provider Emergency Medicine; PCP Family Medicine
DX: L03.116 Cellulitis of left lower limb (principal); F17.210 Nicotine dependence, cigarettes, uncomplicated; Z86.19 Personal history of other infectious and parasitic diseases
CPT/HCPCS: 36415; 73590; 80053; 83605; 85025; 87040; 96365; 96375; 99284; J0696; J1885; J2270; J7030

== ENCOUNTER 2022-11-08 16:30 | Emergency (ER) | payer SELFPAY ==
[2022-11-08 16:55] VITALS: BP 102/66; PULSE 87; RESP 18; TEMP 36.7; O2SAT 100; BMI 18.2
--- NOTE | 2022-11-08 17:52 | ED_ITS ---
HPI - Extremity Problem General: Chief complaint: Extremity Problem,Nontraumatic Stated complaint: Left leg swelling Time Seen by Provider: 11/08/22 17:20 History of Present Illness: Patient is a 31-year-old female comes to the ED with left lower leg pain and swelling. Symptoms initially started approximately 4 days ago. Patient was seen here in the ED for same complaint back on November 05 and diagnosed with cellulitis. Patient has been taking Keflex daily for cellulitis. Over the past couple days patient says the swelling around cellulitis on the left lower leg has gotten larger and more painful. Denies any purulent drainage, fevers or red streaking up the leg. Associated symptoms: Deny chest pain, fever(s) or rash Review of Systems Const: Denies: fever(s), chills or fatigue Eyes: Denies: change in vision or eye discomfort ENMT: Denies: throat pain, odynophagia, nasal discharge or nasal congestion Card: Denies: chest pain, palpitations, edema, swelling of feet/ankles, dyspnea on exertion or orthopnea Resp: Denies: dyspnea, productive cough or non-productive cough GI: Denies: abdominal pain, nausea, vomiting, diarrhea, constipation or hematochezia : Denies: flank pain, dysuria or hematuria Musc: Denies: neck pain, back pain or extremity swelling Skin/Breast: Reports: new lesions (Cellulitis on the left lower leg); Denies: rash Neuro: Denies: headache(s), numbness in extremities or weakness in extremities [facility] ED PFSH: Medical History Aftercare following surgery of the genitourinary system Hepatitis C History of illicit drug use Sober date 2015 Nausea and vomiting No pertinent past medical history neghx: htn,dm,thyroid,dvt/pe PCP: None TMJ pain dysfunction syndrome Viral syndrome Surgical History H/O tubal ligation 05/24/2021- PP bilateral tubal ligation performed by Dr. Reyna at [facility] Hx of dilation and curettage (~2014) Family History Father Diabetes Clotting disorder Hypertension Grandmother Diabetes paternal Family/Other Thyroid condition maternal aunt Sister Thyroid condition Ovarian cancer diagnosis age unknown Denies family history of Colon cancer Heart disease Hyperlipidemia Breast cancer Uterine cancer Stroke Social History Smoking and tobacco status: current every day smoker cigarettes Packs smoked per day: 0.25 Alcohol intake: former Year of sobriety/quit date alcohol: 2016 Other details last substance use: hitsory of methamphetamines, marijuana and opiate abuse Physical Exam Const: COMMON NORMALS: patient oriented x3 HENMT: COMMON NORMALS: normocephalic HEAD & SCALP: normocephalic MOUTH: Normal oral and palatal mucosa present THROAT: posterior oropharynx normal and uvula midline Neck/C-Spine: COMMON NORMALS: supple GENERAL: Yes normal visual inspection Resp: COMMON NORMALS: normal respiratory effort, No retractions, No use of accessory muscles and clear to auscultation bilaterally AUSCULTATION: clear to auscultation bilaterally Cardio: COMMON NORMALS: regular rate, regular rhythm, S1 normal heart sound present, S2 normal heart sound present, No gallops present (Cardio), No clicks present (Cardio), No murmurs present (Cardio) and Peripheral pulses 2+ throughout RATE: regular rate RHYTHM: regular rhythm HEART SOUNDS: S1 normal heart sound present and S2 normal heart sound present PERIPHERAL PULSES: Peripheral pulses 2+ throughout GI: COMMON NORMALS: Normal to inspection, nondistended, normoactive bowel sounds present, Soft to palpation, non-tender and no masses PALPATION: Yes Soft to palpation : COMMON NORMALS: Yes no CVA tenderness BLADDER/KIDNEY EXAM: Yes no CVA tenderness Back/Pelvis: COMMON NORMALS: no CVA tenderness Extremity: NARRATIVE EXTREMITY EXAM: Left lower leg?anterior mid myrick?erythema, warmth and tender swollen nodule. No purulent drainage or red streaking seen. Erythema is localized. Findings suggestive of possible abscess with surrounding cellulitis. GENERAL: Yes normal exam except as noted Neuro: COMMON NORMALS: patient oriented x3 GAIT: Yes Normal gait present Skin: GENERAL SKIN EXAM: dry skin Procedures Abscess I/D Site: lower extremity (Left lower leg) Side (if applicable): left Sedation/analgesia: none Local Anesthetic: lidocaine 1% and with epi Amount of anesthesia used (mL): 3 Technique: incised with #11 blade Amount of fluid expressed (mL): 3 (Purulent drainage) Irrigation: Yes Packing used?: none Course Vital Signs: Vital signs: Vital Signs Temperature 98.1 F 11/08/22 16:55 Pulse Rate 87 11/08/22 16:55 Respiratory Rate 18 11/08/22 16:55 Blood Pressure 102/66 11/08/22 16:55 Pulse Oximetry 100 11/08/22 16:55 MDM - Extremity (Nontraumatic) Medical Decision Making Patient is a 31-year-old female comes to the ED with left lower leg pain and swelling. Symptoms initially started approximately 4 days ago. Patient was seen here in the ED for same complaint back on November 05 and diagnosed with cellulitis. Patient has been taking Keflex daily for cellulitis. Over the past couple days patient says the swelling around cellulitis on the left lower leg has gotten larger and more painful. Denies any purulent drainage, fevers or red streaking up the leg. Vitals are stable. Left lower leg?anterior mid myrick?erythema, warmth and tender swollen nodule. No purulent drainage or red streaking seen. Erythema is localized. Findings suggestive of possible abscess with surrounding cellulitis. Abscess I&D performed using lidocaine 1% as local and a #11 blade. 3 mL of purulent fluid drained out. Abscess culture pending. I have placed order with case management for patient referred to PCP for follow- up on abscess. Patient discharged home with a prescription for Bactrim. Return to ED precautions given. Patient understood and agreed with plan. Discharge Plan Discharge Patient Disposition: Home Clinical Impression: Abscess Condition: Stable Prescriptions: New Bactrim DS 800-160 mg tablet 1 tab PO BID 7 Days Qty: 14 0RF No Action ondansetron 4 mg tablet,disintegrating 4 mg PO Q8H PRN (Reason: nausea and vomiting) Qty: 15 0RF oxycodone 5 mg tablet 5 mg PO Q4H PRN (Reason: pain) Qty: 10 0RF cephalexin 500 mg capsule 500 mg PO Q6H 10 Days Qty: 40 0RF Discharge Orders: Discharge ED (Routine); Ordered 11/08/22 Ordered By: Hunter Vitale Discharge Diet: Regular Discharge Activity: Increase activity as tolerated Patient Instructions: Abscess (ED) Activity Restrictions/Additional Instructions: Follow-up with medical provider as directed. Case management to be contacted in the next several days set up an appointment with primary care physician for follow-up. Take medications as prescribed. Return to the ER or your medical provider if condition worsens. Please read and understand discharge instructions. Thank you for choosing [facility] for your healthcare needs today. Please realize this is an emergency room and that we are providing you with a medical screening exam and this may not be complete and all inclusive of all the testing and or work up that you may need to determine your ailment or severity of your illness. It is very important that you follow up as instructed or that you return to the Emergency Department should you have concerns or if your condition changes or worsens in any way. Coding Level of Care Code ED Geothermal Technician for Eris Falk
[2022-11-08] MEDS: HYDROcodone-acetaminophen 7.5-325 mg Tablet 1 TAB PO (17:55)
--- NOTE | 2022-11-09 09:45 | DCPLANNER ---
division service manager had message to speak with patient about getting established with a primary care physician. division service manager called patient, the number in the chart is the wrong number.
== END 2022-11-08 18:40 | disposition home or self-care (01) ==
PROVIDERS: Emergency Provider Physician Assistant
DX: L02.416 Cutaneous abscess of left lower limb (principal); F17.210 Nicotine dependence, cigarettes, uncomplicated; Z86.19 Personal history of other infectious and parasitic diseases
CPT/HCPCS: 10060; 99283